=== PATIENT | female | born 1955 | race Caucasian/White ===

== ENCOUNTER → 2024-04-30 | Outpatient (CLI) | payer MEDICARE, SELFPAY ==
--- NOTE | 2024-04-30 08:28 | MRI_ITS ---
STUDY: EXAMINATION - MRV BRAIN WITHOUT CONTRAST REASON FOR EXAM: Female, 68 years old. TIA TECHNIQUE: 3D mkay-nc-tflmse (TOF) imaging was performed in a 1.5 xin MRI scanner. COMPARISON: None. FINDINGS: Normal flow within the superior sagittal sinus. Normal flow within the superficial cortical veins. Normal flow within the paired internal cerebral veins, vein of Aidan and straight sinus. There is preferential flow within the left transverse and sigmoid sinuses, however there is demonstrated flow within the right transverse and sigmoid sinus. Normal flow within the bilateral jugular bulbs. MRI/MRV Head Without Contrast IMPRESSION: Normal unenhanced MRV of the brain. Electronically Signed: Bong Elizondo MD at 23:23 EST ,
--- NOTE | 2024-04-30 08:28 | MRI_ITS ---
STUDY: MRI BRAIN WITH AND WITHOUT CONTRAST REASON FOR EXAM: Female, 68 years old. TIA TECHNIQUE: Standardized multiplanar fat and water weighted pulse sequences were obtained. IV 15cc clariscan was administered for the contrast portion of the examination. COMPARISON: None. FINDINGS: There is mild cerebral atrophy with widening of the extra-axial spaces and ventricular dilatation. There are a limited number of small white matter hyperintensities, distributed throughout the deep white matter tracts of the cerebral hemispheres, consistent with mild chronic white matter ischemic changes. Normal T2* images of the brain without demonstrated susceptibility artifact. There is no demonstrated hemosiderin stain. Normal bilateral basal ganglia. Normal thalami. There is no extra-axial fluid accumulation. Normal flow voids within the major intracranial circulation suggesting patency by spin echo criteria. Normal venous enhancement. There is no enhancing intra-axial or extra-axial abnormality. Normal sella turcica, pituitary gland, infundibular stalk, optic chiasm and hypothalamus. Normal tectal plate and pineal gland. Normal midbrain, pipo and medulla. Normal cerebellum. Normal basal cisterns. Normal bilateral temporal bones. Normal bilateral internal auditory canals. No demonstrated orbital abnormality, within the constraints of a routine brain study. Normal visualized paranasal sinuses. Normal calvarium and skull base. Normal visualized soft tissue structures. Normal visualized upper cervical spine. MRI/Brain W/WO Contrast IMPRESSION: Involutional changes of the brain, as described above. No acute infarct. Electronically Signed: Bong Elizondo MD at 23:21 EST ,
--- NOTE | 2024-04-30 08:28 | MRI_ITS ---
STUDY: MRA OF THE HEAD WITHOUT CONTRAST REASON FOR EXAM: Female, 68 years old. TIA TECHNIQUE: 3-D ndax-dt-vrsnrv (TOF) imaging was performed with MIPs. The study was performed unenhanced. COMPARISON: None. FINDINGS: Normal bilateral petrous carotid arteries. Normal right cavernous carotid artery with a normal supraclinoid bifurcation. Normal left cavernous carotid artery with a normal supraclinoid bifurcation. Normal right A1 segments of the anterior cerebral artery. Normal left A1 segments of the anterior cerebral artery. Normal intact anterior communicating artery (ACOM). Normal bilateral A2 segments of the anterior cerebral arteries. Normal right M1 and M2 segments of the middle cerebral arteries, with a normal M1 bifurcation. Normal left M1 and M2 segments of the middle cerebral arteries, with a normal M1 bifurcation. Normal right posterior communicating artery (PCOM). Normal left posterior communicating artery (PCOM). Normal bilateral vertebral arteries. Normal basilar artery with a normal basilar bifurcation. The visualized bilateral superior cerebellar (SCA) arteries are normal. Normal bilateral P1, P2 and visualized P3 segments of the posterior cerebral arteries. There is no demonstrated aneurysm of the [place]. There is no major vessel occlusion or hemodynamically significant stenosis. There is no demonstrated abnormality of the visualized brain. MRI/MRA Head ONLY without Contrast IMPRESSION: Normal MRA of the head Electronically Signed: Bong Elizondo MD at 23:22 EST ,
[2024-04-30 08:55] LABS: CREATININE FINGERSTICK < 1.0 mg/dL (0.55-1.02); EGFR FINGERSTICK > 60.0000 mL/min (>60)
== END | disposition home or self-care (01) ==
DX: G93.0 Cerebral cysts (principal); Z86.73 Personal history of transient ischemic attack (TIA), and cerebral infarction without residual deficits
CPT/HCPCS: 70544; 70553; A9575

== ENCOUNTER → 2024-11-12 | Outpatient (CLI) | payer MEDICARE, SELFPAY ==
--- NOTE | 2024-11-12 11:21 | RAD_ITS ---
EXAM: XR Right Knee Complete, 4 or More Views CLINICAL INDICATION: SPRAIN OF UNSPECIFIED SITE OF RIGHT KNEE, INITIAL ENCOUNTER TECHNIQUE: Four or more views of the right knee. COMPARISON: No relevant prior studies available. FINDINGS: BONES/JOINTS: Unremarkable. No acute fracture. No dislocation. SOFT TISSUES: Unremarkable. RAD/Knee 4 or More Views IMPRESSION: No acute fracture. Reading Location[facility]
--- NOTE | 2024-11-12 11:21 | RAD_ITS ---
EXAM: XR Right Knee Complete, 4 or More Views CLINICAL INDICATION: SPRAIN OF UNSPECIFIED SITE OF RIGHT KNEE, INITIAL ENCOUNTER TECHNIQUE: Four or more views of the right knee. COMPARISON: No relevant prior studies available. FINDINGS: BONES/JOINTS: Unremarkable. No acute fracture. No dislocation. SOFT TISSUES: Unremarkable. RAD/Knee 4 or More Views IMPRESSION: No acute fracture. Reading Location: [facility]
== END | disposition home or self-care (01) ==
LOC: RAD 11:19
PROVIDERS: Referring Provider Nurse Practitioner Family; Visit Provider Nurse Practitioner Family
DX: S83.91XA Sprain of unspecified site of right knee, initial encounter (principal)
CPT/HCPCS: 73564

== ENCOUNTER → 2024-11-21 | Outpatient (CLI) | payer MEDICARE, SELFPAY ==
--- NOTE | 2024-11-21 15:52 | BI_ITS ---
EXAM: SCRN MAMM (CAD)W/IVETTE BILAT DATE: 11/21/2024 CLINICAL HISTORY: F, Age 69 y/o , SCREENING TECHNIQUE: SCRN MAMM (CAD)W/IVETTE BILAT COMPARISON: Prior exam(s) were compared FINDINGS: TISSUE DENSITY: There are scattered areas of fibroglandular density. Bilateral Breast Mammographic Findings: No suspicious masses, calcifications or other abnormalities are identified. Bilateral breast implants are present. BI/SCRN MAMM (CAD)W/IVETTE BILAT IMPRESSION: No mammographic evidence of malignancy in either breast. OVERALL FINAL ASSESSMENT BI-RADS 2: BENIGN RECOMMENDATION: Routine annual follow-up in 1 Year A letter with findings and recommendations will be mailed to the patient. Reading Location: [id number]
--- NOTE | 2024-11-21 15:52 | BD_ITS ---
PROCEDURE: DEXA BONE DENSITY STUDY 11/21/2024 REASON FOR EXAM: F, age 69 y/o . TECHNIQUE: DEXA BONE DENSITY STUDY COMPARISON: None available FINDINGS: BMD and T-SCORES Lumbar spine: 1.090 g/cm2, T-score 0.5 Levels: L1 through L4 Left femoral neck: 0.705 g/cm2, T-score -1.3 BD/Dexa Bone Density Study IMPRESSION: Patient's bone density reveals osteopenia with an estimated 10 year risk for hi p fracture of 1.6% and for a Major osteoporotic fracture of 15%. This fracture risk estimate was calculated using FRAX version 3.08. Reading Location: [id number]
== END | disposition home or self-care (01) ==
LOC: OPBI 15:49
DX: Z12.31 Encounter for screening mammogram for malignant neoplasm of breast (principal); Z78.0 Asymptomatic menopausal state
CPT/HCPCS: 77063; 77067; 77080

== ENCOUNTER → 2024-11-28 | Outpatient (CLI) | payer MEDICARE, SELFPAY ==
--- NOTE | 2024-11-28 09:50 | US_ITS ---
PROCEDURE: EXT NON VASC LIMITED/SOFT TISS, 11/28/2024 REASON FOR EXAM: LOCALIZED SWELLING L LEG TECHNIQUE: Targeted grayscale and color Doppler evaluation of the areas of palpable abnormality/clinical concern along the LEFT thigh and lower leg was performed. COMPARISON: None FINDINGS: Along the LEFT lateral thigh, there is a subcutaneous isoechoic ill-defined nodular structure measuring 7 x 5 x 7 mm without detected vascularity. An additional similar-appearing structure along the LEFT lateral thigh measures 6 x 10 x 5 mm, with a peripheral blood vessel. Along the anterior aspect of the lower extremity, there is a subcutaneous peripherally calcified and densely shadowing structure measuring 5 x 5 x 3 mm. US/Ext Non Vasc Limited/Soft Tiss IMPRESSION: Palpable abnormalities along the LEFT lateral thigh correspond to subcutaneous nodular lesions up to 10 mm which are compatible with lipomas. Additional 5 mm calcified and shadowing nodular lesion along the anterior aspect of the LEFT lower extremity is nonspecific. Consider sequela of previous trauma or perhaps a calcified thromb osed superficial vein. Recommend clinical follow-up with follow-up imaging as dictated clinically. Reading Location: [id number]
--- NOTE | 2024-11-28 09:50 | US_ITS ---
PROCEDURE: EXT NON VASC LIMITED/SOFT TISS, 11/28/2024 REASON FOR EXAM: LOCALIZED SWELLING R COMPARISON: None TECHNIQUE: Targeted grayscale and color Doppler evaluation of the area of palpable abnormalities/clinical concern along the RIGHT lateral thigh was performed. FINDINGS: No discrete sonographic abnormality is identified in the areas of clinical concern/palpable abnormality. US/Ext Non Vasc Limited/Soft Tiss IMPRESSION: No discrete sonographic abnormality is identified in the areas of clinical conc brandi/palpable abnormality. If concern or abnormal exam findings persist, consider cross-sectional imaging such as CT/MRI. Reading Location: [id number]
--- OUTSIDE RECORDS SUMMARY | 2024-11-28 12:44 | XMS RPT_ITS | CCD ---
Author Organization [facility] CliniSyme Care Team Providers Care Deputy County Attorney Name Role Phone Ori, Yoandy S Unavailable Unavailable Carp, Yoandy S Unavailable Unavailable Carp, Yoandy S Unavailable Unavailable Dillan Humphrey Unavailable Unavailable Dillan Humphrey Primary Care Provider Susannah Brice Primary Care Provider Shelly Mayers (Heel Sorter) Primary Care Provider [phone] Dillan Humphrey DO Primary Care Provider BROOKE TORRES Attending Unavailable BROOKE TORRES Admitting Unavailable DILLAN HUMPHREY Primary Care Unavailable Jade BROYD Attending Unavailable Dillan Humphrey Attending Unavailable Clare Gallardo Attending Unavailable Ann-Marie Rivers Attending Unavailable Pam, Clare Cota Attending Unavailable Dillan Humphrey Attending Unavailable BROOKE TORRES Referring Unavailable BROOKE TORRES Attending Unavailable DILLAN HUMPHREY Primary Care Unavailable Dillan Humphrey DO Primary Care Provider DILLAN HUMPHREY Primary Care Provider Musat BRIDGE ENGINEER-CKatherine Attending Provider [phone] Musat BRIDGE ENGINEER-C Katherine Referring Provider [phone] GLENN PEÑA Referring Unavailable PEÑA, GLENN Primary Care Unavailable GLENN PEÑA Attending Unavailable GLENN PEÑA Attending Unavailable PEÑA, GLENN Referring Unavailable Care Physician, No Primary Primary Care Unava ilable Jonathan Durán Attending Unavailable GLENN PEÑA Primary Care Unavailable Musghada Katherine Attending Unavailable Musat, Katherine Referring Unavailable PEÑA, GLENN Referring Unavailable Care Physician, No Primary Primary Care Unava ilable GLENN PEÑA Attending Unavailable PEÑA, GLENN Referring Unavailable PEÑA, GLENN Primary Care Unavailable GLENN PEÑA Attending Unavailable CLARE GALLARDO Attending Provider CLARE GALLARDO Referring Provider Medications Current Medications Medication Drug Class(es) Dates Sig (Normalized) Sig (Original) acetaminophen 325 mg / oxyCODONE hydrochloride 5 mg oral tablet (1 source) Opioid Agonist Start: 0 End: 0 take 1 tablet by mouth every six hours as needed for pain, then take 1 tablet by mouth as needed for pain oxyCODONE-acetaminoph en (PERCOCET) 5-325 MG per tablet Indications: Rectal mucosa prolapse Take 1 tablet by mouth every 6 hours as needed for Pain for up to 7 days. Intended supply: 7 days. Take lowest dose possible to manage pain 28 tablet 0 12/20/2019 12/27/2019 Active ALPRAZolam 0.25 mg disintegrating oral tablet (1 source) Benzodiazepine Start: 0 ALPRAZolam (NIRAVAM) dissolvable tablet 0.25 mg 24 hr buPROPion hydrochloride 300 mg extended release oral tablet (5 sources) Aminoketone Start: 0 take 1 tablet by mouth once daily buPROPion (WELLBUTRIN XL) 300 MG extended release tablet TK 1 T PO QD 0 10/14/2019 Active calcium chloride 0.0014 meq/ml / potassium chloride 0.004 meq/ml / sodium chloride 0.103 meq/ml / sodium lactate 0.028 meq/ml injectable solution (1 source) Start: 0 lactated ringers infusion dextroamphetamine sulfate 10 mg extended release oral capsule (10 sources) Central Nervous System Stimulant Start: 0 take 2 tablets by mouth once daily dextroamphetamine (DEXEDRINE) 10 MG extended release capsule Indications: at 1300 Take 20 mg by mouth daily. Indications: at 1300 Take 2 tablets qd 0 10/24/2019 Active Start: 10-24-2019 take 2 tablets by mo uth once daily in the morning dextroamphetamine (DEXEDRINE) 15 MG extended release capsule Take 30 mg by mouth every morning. Take 2 tablets qd 0 10/24/2019 Active 2 ml fentaNYL 0.05 mg/ml injection (2 sources) Opioid Agonist Start: 12-20-2019 fentaNYL (SUBL IMAZE) injection 25 mcg Start: 12-20-2019 fentaNYL (SUBL IMAZE) injection 50 mcg 1 ml hydrALAZINE hydrochloride 20 mg/ml injection (1 source) Arteriolar Vasodilator Start: 12-20-2019 hydrALAZINE (APRESOLINE) injection 5 mg 1 ml HYDROmorphone hydrochloride 1 mg/ml cartridge (2 sources) Opioid Agonist Start: 12-20-2019 HYDROmorphone (DILAUDID) injection 0.5 mg Start: 12-20-2019 HYDROmorphone (DILAUDID) injection 0.25 mg 4 ml labetalol hydrochloride 5 mg/ml cartridge (1 source) beta-Adrenergic Kota Start: 12-20-2019 labetalol (NORMODYNE;TRANDATE) injection 5 mg lisinopril 10 mg oral tablet (5 sources) Angiotensin Converting Enzyme Inhibitor Start: 10-14-2019 take 1 tablet by mouth once daily lisinopril (PRINIVIL;ZESTRIL) 10 MG tablet TK 1 T PO ONCE A DAY 0 10/14/2019 Active 1 ml meperidine hydrochloride 25 mg/ml cartridge (1 source) Opioid Agonist Start: 12-20-2019 meperidine (DEMEROL) injection 12.5 mg 3 ml sodium chloride 9 mg/ml injection (2 sources) Start: 12-20-2019 sodium chloride flush 0.9 % injection 10 mL Completed/Discontinued Medications Medication Drug Class(es) Dates Sig (Normalized) Sig (Original) acetaminophen 500 mg oral tablet (1 source) Start: 12-20-2019 End: 12-20-2019 acetaminophen (TYLENOL) tablet 1,000 mg Start: 12-20-2019 End: 12-20-2019 acetaminophen (TYLENOL) tabl et 1,000 mg celecoxib 400 mg oral capsule (1 source) Nonsteroidal Anti-inflammatory Drug Start: 12-20-2019 End: 12-20-2019 celecoxib (CELEBREX) capsule 400 mg Start: 12-20-2019 End: 12-20-2019 celecoxib (CELEBREX) capsule 400 mg famotidine 20 mg oral tablet (1 source) Histamine-2 Receptor Antagonist Start: 12-20-2019 End: 12-20-2019 famotidine (PEPCID) tablet 20 mg Start: 12-20-2019 End: 12-20-2019 famotidine (PEPCID) tablet 2 0 mg gabapentin 300 mg oral capsule (1 source) Anti-epileptic Agent Start: 12-20-2019 End: 12-20-2019 gabapentin (NEURONTIN) capsule 300 mg Start: 12-20-2019 End: 12-20-2019 gabapentin (NEURONTIN) capsu le 300 mg 2 ml ondansetron 2 mg/ml injection (1 source) Serotonin-3 Receptor Antagonist Start: 12-20-2019 End: 12-20-2019 ondansetron (ZOFRAN) injection 4 mg Problems Active Problems Problem Classification Problem Date Documented Date Episodic/Chronic Anal and rectal conditions (1 source) Rectal prolapse; Translations: [Rectal mucosa prolapse] Episodic Conditions associated with dizziness or vertigo (1 source) Dizziness and giddiness; Translations: [Dizziness and giddiness] Onset: 12-29-2023 Episodic Disorders of lipid metabolism (1 source) Hyperlipidemia; Translations: [Hyperlipidemia] 07-30-2015 Chronic Essential hypertension (2 sources) Essential hypertension; Translations: [Essential (primary) hypertension] Onset: 11-28-2023 07-30-2015 Chronic Other and ill-defined cerebrovascular disease (1 source) Cerebrovascular disease, unspecified; Translations: [Cerebrovascular disease, unspecified] Onset: 12-29-2023 Chronic Other hematologic conditions (2 sources) Congenital methemoglobinemia; 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] Onset: 11-25-2022 Episodic Other nervous system disorders (1 source) Aphasia; Translations: [Aphasia] Onset: 11-06-2023 Chronic Other nervous system disorders (1 source) Cerebral cysts; Translations: [Cerebral cysts] Onset: 05-22-2024 Chronic Other screening for suspected conditions (not mental disorders or infectious disease) (1 source) Encounter for screening mammogram for malignant neoplasm of breast; Translations: [Encounter for screening mammogram for malignant neoplasm of breast] Onset: 11-21-2024 Episodic Other skin disorders (1 source) Localized swelling, mass and lump, lower limb, bilateral; Translations: [Localized swelling, mass and lump, lower limb, bilateral] Onset: 11-26-2024 Episodic Residual codes; unclassified (2 sources) Other hypersomnia; Translations: [OTHER HYPERSOMNIA] Onset: 12-14-2020 Chronic Residual codes; unclassified (2 sources) Obstructive sleep apnea (adult) (pediatric); Translations: [Obstructive sleep apnea (adult) (pediatric)] Onset: 06-05-2024 Chronic Residual codes; unclassified (3 sources) Obstructive sleep apnea syndrome; Translations: [Obstructive sleep apnea (adult) (pediatric)] 06-05-2024 Chronic Residual codes; unclassified (2 sources) Hypersomnia; Translations: [Other hypersomnia] 06-06-2024 Chronic Residual codes; unclassified (1 source) Altered mental status, unspecified; Translations: [Altered mental status, unspecified] Onset: 11-06-2023 Episodic Residual codes; unclassified (1 source) Asymptomatic menopausal state; Translations: [Asymptomatic menopausal state] Onset: 11-21-2024 Episodic Residual codes; unclassified (1 source) Taking high risk medication; Translations: [High risk medication use] 07-30-2015 Sprains and strains (1 source) Sprain of unspecified site of right knee, initial encounter; Translations: [Sprain of unspecified site of right knee, initial encounter] Onset: 11-18-2024 Episodic Unclassified (1 source) Unknown / UNK(Unknown) Onset: 05-24-2017 Past or Other Problems Problem Classification Problem Date Documented Da te Episodic/Chronic Lymphadenitis (1 source) Localized enlarged lymph nodes; Translations: [Localized enlarged lymph nodes] Onset: 04-14-2023 Episodic Ovarian cyst (1 source) Unspecified ovarian cyst, right side; Translations: [Unspecified ovarian cyst, right side] Onset: 04-14-2023 Episodic Unclassified (1 source) PRESURGICAL TESTING~ Onset: 05-24-2017 Results Test Name Value Interpretation Reference Range Facility Bone density reportOrdered B y: María Mills on 11-22-2024 Study report Skeletal system DXA [facility] Imaging Services [address] [place] [address] [id number] Dexa Bone Density Study MR#: [id number] Acct: [id number] Name: JENNIFFER DOMINGUEZ Rep #: [id number] : 1955 F 69 From: Chris Heath MD PCP: DILLAN HUMPHREY Status: REG CLI Study:Dexa Bone Density Study Date of Exam: 11/21/24 Exam# [id number] Ordering Dr: Sivan GALLARDO PROCEDURE: DEXA BONE DENSITY STUDY 11/21/2024 REASON FOR EXAM: F, age 69 y/o . TECHNIQUE: DEXA BONE DENSITY STUDY COMPARISON: None available FINDINGS: BMD and T-SCORES Lumbar spine: 1.090 g/cm2, T-score 0.5 Levels: L1 through L4 Left femoral neck: 0.705 g/cm2, T-score -1.3 BD/Dexa Bone Density Study IMPRESSION: Patient's bone density reveals osteopenia with an estimated 10 year risk for hipfracture of 1.6% and for a Major osteoporotic fracture of 15%. This fracture risk estimate was calculated using FRAX version 3.08. Reading Location: [id number] CC: CLARE GALLARDO; DILLAN HUMPHREY ~ Lead Electrician: Signed [facility] Breast imaging reportOrdered By: María Mills on 11-21-[address] [facility] Services [address] [place] [address] SCRN MAMM (CAD)W/IVETTE BILAT MR#: [id number] Acct: [id number] Name: JENNIFFER DOMINGUEZ Rep #: [id number] : 1955 F 69 From: Chris Heath MD PCP: DILLAN HUMPHREY Status: REG CLI Study:SCRN MAMM (CAD)W/IVETTE BILAT Date of Exa m: 11/21/24 Exam# [id number] Ordering Dr: Sivan GALLARDO EXAM: SCRN MAMM (CAD)W/IVETTE BILAT DATE: 11/21/2024 CLINICAL HISTORY: F, Age 69 y/o , SCREENING TECHNIQUE: SCRN MAMM (CAD)W/IVETTE BILAT COMPARISON: Prior exam(s) were compared FINDINGS: TISSUE DENSITY: There are scattered areas of fibroglandular density. Bilateral Breast Mammographic Findings: No suspicious masses, calcifications or other abnormalities are identified. Bilateral breast implants are present. BI/SCRN MAMM (CAD)W/IVETTE BILAT IMPRESSION: No mammographic evidence of malignancy in either breast. OVERALL FINAL ASSESSMENT BI-RADS 2: BENIGN RECOMMENDATION: Routine annual follow-up in 1 Year A letter with findings and recommendations will be mailed to the patient. Reading Location: [facility] CC: CLARE GALLARDO; DILLAN HUMPHREY ~ Lead Electrician: Signed [facility] Dexa Bone Density Studyon Dexa Bone Density Study [facility] Imaging Services [address] [place] [address] Dexa Bone Density Study MR#: [id number] Acct: [id number] Name: JENNIFFER DOMINGUEZ Rep #: [id number] : 1955 F 69 From: María Lopez i, MD PCP: DILLAN HUMPHREY Status: REG CLI Study: Dexa Bone Density Study Date of Exam: 11/21/24 Exam# [id number] Ordering Dr: CLARE GALLARDO PROCEDURE: DEXA BONE DENSITY STUDY 11/21/2024 REASON FOR EXAM: F, age 69 y/o . TECHNIQUE: DEXA BONE DENSITY STUDY COMPARISON: None available FINDINGS: BMD and T-SCORES Lumbar spine: 1.090 g/cm2, T-score 0.5 Levels: L1 through L4 Left femoral neck: 0.705 g/cm2, T-score -1.3 BD/Dexa Bone Density Study IMPRESSION: Patient's bone density reveals osteopenia with an estimated 10 year risk for hip fracture of 1.6% and for a Major osteoporotic fracture of 15%. This fracture risk estimate was calculated using FRAX version 3.08. Reading Location: [facility] CC: CLARE GALLARDO; DILLAN HUMPHREY Lead Electrician: Signed Normal [facility] SCRN MAMM (CAD)W/IVETTE BILATo n 11-21-2024 SCRN MAMM (CAD)W/IVETTE BILAT [facility] Imaging Services [address] [place] [address] SCRN MAMM (CAD)W/IVETTE BILAT MR#: [id number] Acct: [id number] Name: JENNIFFER DOMINGUEZ Rep #: [id number] : 1955 F 69 From: María Lopez i, MD PCP: DILLAN HUMPHREY Status: REG CLI Study: SCRN MAMM (CAD)W/IVETTE BILAT Date of Exam: 10/30 08/23 Exam# [id number] Ordering Dr: CLARE GALLARDO EXAM: SCRN MAMM (CAD)W/IVETTE BILAT DATE: 11/21/2024 CLINICAL HISTORY: F, Age 69 y/o , SCREENING TECHNIQUE: SCRN MAMM (CAD)W/IVETTE BILAT COMPARISON: Prior exam(s) were compared FINDINGS: TISSUE DENSITY: There are scattered areas of fibroglandular density. Bilateral Breast Mammographic Findings: No suspicious masses, calcifications or other abnormalities are identified. Bilateral breast implants are present. BI/SCRN MAMM (CAD)W/IVETTE BILAT IMPRESSION: No mammographic evidence of malignancy in either breast. OVERALL FINAL ASSESSMENT BI-RADS 2: BENIGN RECOMMENDATION: Routine annual follow-up in 1 Year A letter with findings and recommendations will be mailed to the patient. Reading Location: [id number] CC: CLARE GALLARDO; DILLAN HUMPHREY Lead Electrician: Signed Normal [facility] Knee 4 or More Viewson 11-[address] [facility] Services [address] [place] [address] Knee 4 or More Views MR#: [id number] Acct: [id number] Name: JENNIFFER DOMINGUEZ Rep #: [id number] : 1955 F 69 From: Ryan Reddy MD PCP: DILLAN HUMPHREY Status: REG CLI Study: Knee 4 or More Views Date of Exam: 11/12/24 Exam# [id number] Ordering Dr: Katherine Moreno BRIDGE ENGINEER-C EXAM: XR Right Knee Complete, 4 or More Views CLINICAL INDICATION: SPRAIN OF UNSPECIFIED SITE OF RIGHT KNEE, INITIAL ENCOUNTER TECHNIQUE: Four or more views of the right knee. COMPARISON: No relevant prior studies available. FINDINGS: BONES/JOINTS: Unremarkable. No acute fracture. No dislocation. SOFT TISSUES: Unremarkable. RAD/Knee 4 or More Views IMPRESSION: No acute fracture. Reading Location: [facility] CC: CEDRIC Moreno; DILLAN HUMPHREY Lead Electrician: Signed Normal [facility] COMPREHENSIVE METABOLIC PANE Alfredito 11-06-2024 Albumin [Mass/Vol] 4.3 g/dL Normal 3.6-5.1 [facility] Comment on above: Performed By: #### X LPB #### [facility] [address] [place] [phone] Play Reader: Rebekah Monroy M.D. #### 7600, 05558 #### [facility] [place] [address] [place] , [address] [place], [place] [phone] Play Reader: Blaze Gonzalez MD Albumin/Globulin [Mass ratio] 2.3 {ratio} Normal 1.0-2.5 [facility] Comment on above: Performed By: #### X LPB #### [facility] [address] [place], [place] [phone] Play Reader: Rebekah Monroy M.D. #### 7600, 79791 #### [facility] [place] [address] [place] , [address] [place], [place] [phone] Play Reader: Blaze Gonzalez MD ALP [Catalytic activity/Vol] 71 U/L Normal 37-153 [facility] Comment on above: Performed By: #### X LPB #### [facility] [address] [place] [phone] Play Reader: Rebekah Monroy M.D. #### 7600, 61675 #### [facility] of [place] [address] [place] , [address] [place] [phone] Play Reader: Blaze Gonzalez MD ALT [Catalytic activity/Vol] 19 U/L Normal 6-29 [facility] Comment on above: Performed By: #### X LPB #### [facility] [address] [place] [phone] Play Reader: Rebekah Monroy M.D. #### 7600, 09222 #### [facility] [address] , [address] [place] [address] Play Reader: Blaze Gonzalez MD AST [Catalytic activity/Vol] 20 U/L Normal 10-35 [facility] Comment on above: Performed By: #### X LPB #### [facility] [address] [place] [address] Play Reader: Rebekah Monroy M.D. #### 7600, 94035 #### [facility] [address], [address] [place] [address] Play Reader: Blaze Gonzalez MD Bilirubin [Mass/Vol] 0.5 mg/dL Normal 0.2-1.2 [facility] Comment on above: Performed By: #### X LPB #### [facility] [place] [address] Play Reader: Rebekah Monroy M.D. #### 7600, 10546 #### [facility] [address], [address] [place] [address] Play Reader: Blaze Gonzalez MD BUN/CREATININE RATIO SEE NOTE: Normal 6-22 [facility] Comment on above: Result Comment: Not Reported: BUN and Creatinine are within reference range. Performed By: #### X LPB #### [facility] [place] [address] Play Reader: Rebekah Monroy M.D. #### 7600, 34181 #### [facility] [address], [address] [place] [address] Play Reader: Blaze Gonzalez MD Calcium [Mass/Vol] 9.3 mg/dL Normal 8.6-10.4 [facility] Comment on above: Performed By: #### X LPB #### [facility] [place] [address] Play Reader: Rebekah Monroy M.D. #### 7600, [address]309 #### [facility] [address], [address] [place], [place] [phone] Play Reader: Blaze Gonzalez MD Chloride [Moles/Vol] 105 mmol/L Normal 98-110 [facility] Comment on above: Performed By: #### X LPB #### [facility] [address] [place], [place] [phone] Play Reader: Rebekah Monroy M.D. #### 7600, 92292 #### [facility] [address], [address] [place] [address] Play Reader: Blaze Gonzalez MD CO2 [Moles/Vol] 25 mmol/L Normal 20-32 [facility] Comment on above: Performed By: #### X LPB #### [facility]-[address] Play Reader: Rebekah Monroy M.D. #### 7600, [address] #### [facility] [address], [address] [place] [address] Play Reader: Blaze Gonzalez MD Creatinine [Mass/Vol] 0.79 mg/dL Normal 0.50-1.05 [facility] Comment on above: Performed By: #### X LPB #### [facility]-[address] [place] [address] Play Reader: Rebekah Monroy M.D. #### 7600, 31625 #### [facility] [address], [address] [place] [address] Play Reader: Blaze Gonzalez MD GFR/1.73 sq M.predicted among non-blacks MDRD (S/P/Bld) [Vol rate/Area] 81 mL/min/{1.73_m2} Normal > OR = 60 [facility] Comment on above: Performed By: #### X LPB #### [facility]-[address] [place] [phone] Play Reader: Rebekah Monroy M.D. #### 7600, 81721 #### [facility] [address], [address] [place], [place] [phone] Play Reader: Blaze Gonzalez MD Globulin (S) [Mass/Vol] 1.9 g/dL Normal 1.9-3.7 [facility] Comment on above: Performed By: #### X LPB #### [facility] [place] [address] Play Reader: Rebekah Monroy M.D. #### 7600, 45284 #### [facility] [address], [address] [place] [address] Play Reader: Blaze Gonzalez MD Glucose [Mass/Vol] 95 mg/dL Normal 65-99 [facility] Comment on above: Result Comment: Fasting reference interval Performed By: #### X LPB #### [facility] [place] [address] Play Reader: Rebekah Monroy M.D. #### 7600, 61502 #### [facility] [address], [address] [place] [address] Play Reader: Blaze Gonzalez MD Potassium [Moles/Vol] 4.6 mmol/L Normal 3.5-5.3 [facility] Comment on above: Performed By: #### X LPB #### [facility] [place] [address] Play Reader: Rebekah Monroy M.D. #### 7600, 47416 #### [facility] [place] [address] Play Reader: Blaze Gonzalez MD Protein [Mass/Vol] 6.2 g/dL Normal 6.1-8.1 [facility] Comment on above: Performed By: #### X LPB #### [facility] [place] [address] Play Reader: Rebekah Monroy M.D. #### 7600, 25987 #### [facility] [address], [address] [place], [place] [address] Play Reader: Blaze Gonzalez MD Sodium [Moles/Vol] 138 mmol/L Normal 135-146 [facility] Comment on above: Performed By: #### X LPB #### [facility] [address] [place] [phone] Play Reader: Rebekah Monroy M.D. #### 7600, 69600 #### [facility] of [address], [address] [place], [place] [phone] Play Reader: Blaze Gonzalez MD Urea nitrogen [Mass/Vol] 23 mg/dL Normal 7-25 [facility] Comment on above: Performed By: #### X LPB #### [facility] [address] [place] [phone] Play Reader: Rebekah Monroy M.D. #### 7600, 75208 #### [facility] [address], [address] [place] [address] Play Reader: Blaze Gonzalez MD EXTRA LAVENDER-TOP TUBEon COMMENT Normal [facility] Comment on above: Result Comment: An e xtra specimen was received with no test requested. The specimen will be maintained in storage in case additional testing is needed. Please call the client service department for further assistance. Performed By: #### X LPB #### [facility] [address] [place], [place] [phone] Play Reader: Rebekah Monroy M.D. #### 7600, 73029 #### [facility] [address], [address] [place] [address] Play Reader: Blaze Gonzalez MD EXTRA LAVENDER-TOP TUBE Normal [facility] Comment on above: Performed By: #### X LPB #### [facility] [address] [place] [phone] Play Reader: Rebekah Monroy M.D. #### 7600, 44042 #### [facility] [address], [address] [place], [place] [phone] Play Reader: Blaze Gonzalez MD LIPID PANEL, STANDARDon Cholesterol [Mass/Vol] 228 mg/dL High <200 [facility] Comment on above: Order Comment: 0 0 Performed By: #### X LPB #### [facility] [address] [place] [phone] Play Reader: Rebekah Monroy M.D. #### 7600, 24227 #### [facility] [address], [address] [place] [address] Play Reader: Blaze Gonzalez MD Cholesterol in HDL [Mass/Vol] 75 mg/dL Normal > OR = 50 [facility] Comment on above: Order Comment: 0 0 Performed By: #### X LPB #### [facility] [address] [place] [phone] Play Reader: Rebekah Monroy M.D. #### 7600, 87265 #### [facility] [address], [address] [place] [address] Play Reader: Blaze Gonzalez MD Cholesterol in LDL [Mass/Vol] 133 mg/dL High [facility] Comment on above: Order Comment: 0 0 Result Comment: Refe rence range: <100 Desirable range <100 mg/dL for primary prevention; <70 mg/dL for patients with CHD or diabetic patients with > or = 2 CHD risk factors. LDL-C is now calculated using the Samson-Santiago calculation, which is a validated novel method providing better accuracy than the Friedewald equation in the estimation of LDL-C. Samson PULLIAM et al. JEANNIE. 2013;310(19): 3388-3611 (http://education.[facility].140Fire/faq/STB930) Performed By: #### X LPB #### [facility] [address] [place] [address] Play Reader: Rebekah Monroy M.D. #### 7600, 44967 #### [facility] [address], [address] [place], [place] [phone] Play Reader: Blaze Gonzalez MD Cholesterol.total/C holesterol in HDL [Mass ratio] 3.0 {ratio} Normal <5.0 [facility] Comment on above: Order Comment: 0 0 Performed By: #### X LPB #### [facility] [address] [place] [phone] Play Reader: Rebekah Monroy M.D. #### 7600, 29249 #### [facility] [address], [address] [place] [address] Play Reader: Blaze Gonzalez MD NON HDL CHOLESTEROL 153 mg/dL (calc) High <130 [facility] Comment on above: Order Comment: 0 0 Result Comment: For patients with diabetes plus 1 major ASCVD risk factor, treating to a non-HDL-C goal of <100 mg/dL (LDL-C of <70 mg/dL) is considered a therapeutic option. Performed By: #### X LPB #### [facility] [address] Play Reader: Rebekah Monroy M.D. #### 7600, [id number] #### [facility] [address], [address] [place] [address] Play Reader: Blaze Gonzalez MD Triglyceride [Mass/Vol] 102 mg/dL Normal <150 [facility] Comment on above: Order Comment: 0 0 Performed By: #### X LPB #### [facility] [address] Play Reader: Rebekah Monroy M.D. #### 7600, [address]2616 #### [facility] [place] [address] Play Reader: Blaze Gonzalez MD No Panel Informationon 06-06 [facility] Brain W/WO Contraston 2023 Brain W/WO Contrast [facility] Imaging Services [address] [place], [place] [id number] Brain W/WO Contrast MR#: [id number] Acct: [id number] Name: ANGELICAJENNIFFER BACA Rep #: [id number] : 1955 F 68 From: Bong Elizondo MD PCP: Care Physician,No Primary Status: REG CLI Study: Brain W/WO Contrast Date of Exam: 04/30/24 Exam# [id number] Ordering Dr: BROOKE TORRES [id number] STUDY: MRI BRAIN WITH AND WITHOUT CONTRAST REASON FOR EXAM: Female, 68 years old. TIA TECHNIQUE: Standardized multiplanar fat and water weighted pulse sequences were obtained. IV 15cc clariscan was administered for the contrast portion of the examination. COMPARISON: None. FINDINGS: There is mild cerebral atrophy with widening of the extra-axial spaces and ventricular dilatation. There are a limited number of small white matter hyperintensities, distributed throughout the deep white matter tracts of the cerebral hemispheres, consistent with mild chronic white matter ischemic changes. Normal T2* images of the brain without demonstrated susceptibility artifact. There is no demonstrated hemosiderin stain. Normal bilateral basal ganglia. Normal thalami. There is no extra-axial fluid accumulation. Normal flow voids within the major intracranial circulation suggesting patency by spin echo criteria. Normal venous enhancement. There is no enhancing intra-axial or extra-axial abnormality. Normal sella turcica, pituitary gland, infundibular stalk, optic chiasm and hypothalamus. Normal tectal plate and pineal gland. Normal midbrain, pipo and medulla. Normal cerebellum. Normal basal cisterns. Normal bilateral temporal bones. Normal bilateral internal auditory canals. No demonstrated orbital abnormality, within the constraints of a routine brain study. Normal visualized paranasal sinuses. Normal calvarium and skull base. Normal visualized soft tissue structures. Normal visualized upper cervical spine. MRI/Brain W/WO Contrast IMPRESSION: Involutional changes of the brain, as described above. No acute infarct. Electronically Signed: Bong Elizondo MD at 23:21 EST , CC: BROOKE TORRES; No Primary Care Physician Lead Electrician: Signed Normal [facility] CREATININE FINGERSTICKon CREATININE WB < 1.0 Normal 0.55-1.02 [facility] Comment on above: Performed By: #### L 9100.0200 #### [facility] Laboratory [address] [place], [place], [address] EGFR WB > 60.0000 Normal >60 [facility] Comment on above: Performed By: #### L 9100.0200 #### [facility] Laboratory [address] [place], [place], [address] MRA Head ONLY without Contra ston 04-30-2024 MRA Head ONLY without Contrast [facility] Imaging Services [address] [place], [place] [address] MRA Head ONLY without Contrast MR#: [id number] Acct: [id number] Name: JENNIFFER DOMINGUEZ Rep #: [id number] : 1955 F 68 From: Bong Elizondo MD PCP: Care Physician,No Primary Status: REG CLI Study: MRA Head ONLY without Contrast Date of Exam: Exam# [id number] Ordering Dr: BROOKE TORRES [id number] STUDY: MRA OF THE HEAD WITHOUT CONTRAST REASON FOR EXAM: Female, 68 years old. TIA TECHNIQUE: 3-D beqo-kd-hdtauz (TOF) imaging was performed with MIPs. The study was performed unenhanced. COMPARISON: None. FINDINGS: Normal bilateral petrous carotid arteries. Normal right cavernous carotid artery with a normal supraclinoid bifurcation. Normal left cavernous carotid artery with a normal supraclinoid bifurcation. Normal right A1 segments of the anterior cerebral artery. Normal left A1 segments of the anterior cerebral artery. Normal intact anterior communicating artery (ACOM). Normal bilateral A2 segments of the anterior cerebral arteries. Normal right M1 and M2 segments of the middle cerebral arteries, with a normal M1 bifurcation. Normal left M1 and M2 segments of the middle cerebral arteries, with a normal M1 bifurcation. Normal right posterior communicating artery (PCOM). Normal left posterior communicating artery (PCOM). Normal bilateral vertebral arteries. Normal basilar artery with a normal basilar bifurcation. The visualized bilateral superior cerebellar (SCA) arteries are normal. Normal bilateral P1, P2 and visualized P3 segments of the posterior cerebral arteries. There is no demonstrated aneurysm of the [place] of [place]. There is no major vessel occlusion or hemodynamically significant stenosis. There is no demonstrated abnormality of the visualized brain. MRI/MRA Head ONLY without Contrast IMPRESSION: Normal MRA of the head Electronically Signed: Bong Elizondo MD at 23:22 EST , CC: BROOKE TORRES; No Primary Care Physician Lead Electrician: Signed Normal [facility] MRV Head Without Contraston 04-30-[address] [facility] Imaging Services [address] [place] [address] MRV Head Without Contrast MR#: [id number] Acct: [id number] Name: JENNIFFER DOMINGUEZ Rep #: [id number] : 1955 F 68 From: Bong Elizondo MD PCP: Care Physician,No Primary Status: REG CLI Study: MRV Head Without Contrast Date of Exam: Exam# [id number] Ordering Dr: BROOKE TORRES [id number] STUDY: EXAMINATION - MRV BRAIN WITHOUT CONTRAST REASON FOR EXAM: Female, 68 years old. TIA TECHNIQUE: 3D dlkd-pu-msdmog (TOF) imaging was performed in a 1.5 xin MRI scanner. COMPARISON: None. FINDINGS: Normal flow within the superior sagittal sinus. Normal flow within the superficial cortical veins. Normal flow within the paired internal cerebral veins, vein of Aidan and straight sinus. There is preferential flow within the left transverse and sigmoid sinuses, however there is demonstrated flow within the right transverse and sigmoid sinus. Normal flow within the bilateral jugular bulbs. MRI/MRV Head Without Contrast IMPRESSION: Normal unenhanced MRV of the brain. Electronically Signed: Bong Elizondo MD at 23:23 EST , CC: BROOKE TORRES; No Primary Care Physician Lead Electrician: Signed Normal [facility] 2D M MODE ECHO [place] 2D M MODE ECHO COMPLETE JENNIFFER DOMINGUEZ S Female [id number] Ordering physician: Dillan Humphrey LOC:ECHO [id number] Attending physician: Dillan Humphrey 1955 68 DOS: 12/29/23 Acc#: [id number] Exam/Proc: 2D M MODE ECHO COMPLETE Dept: ECHOCARDIOGRAM JENNIFFER DOMINGUEZ Exam Date: 12/29/2023 13:35 Ordering Physician: Dillan Humphrey : 1955 Age: 68 Gender: F Referring Physician: Dillan Humphrey Ht (cm): 163 Wt (kg): 79 Technologist: Preston Feng RDMS, RDCS Exam #: [id number] Indications: Dizziness and giddiness BP: / HR: BSA: 1.92 Rhythm: Contrast: Technical Quality: MEASUREMENTS (Male / Female) Normal Values 2D ECHO LV Diastolic Diameter PLAX 3.4 cm 4.2 - 5.9 / 3.9 - 5.3 cm IVS Diastolic Thickness 1.3 cm 0.6 - 1.0 / 0.6 - 0.9 cm LVPW Diastolic Thickness 1.1 cm 0.6 - 1.0 / 0.6 - 0.9 cm LV Relative Wall Thickness 0.72 LVOT Diameter 2.1 cm LV Diastolic Volume MOD BP 52.9 ml 67 - 155 / 56 - 104 ml LV Systolic Volume MOD BP 19 ml 22 - 58 / 19 - 49 ml LV Ejection Fraction MOD BP 0.64 % >= 55 % LV Stroke Volume MOD BP 33.9 ml LV Diastolic Volume MOD 4C 64.5 ml LV Systolic Volume MOD 4C 23.7 ml LV Ejection Fraction MOD 4C 0.63 % LV Stroke Volume MOD 4C 40.9 ml LV Diastolic Volume MOD 2C 43.3 ml LV Systolic Volume MOD 2C 15.4 ml LV Ejection Fraction MOD 2C 0.64 % LV Stroke Volume MOD 2C 27.8 ml M-MODE Body Surface Area 1.9 m? DOPPLER AV Peak Velocity 121 cm/s AV Peak Gradient 5.8 mmHg AV Mean Velocity 87.3 cm/s AV Mean Gradient 3.4 mmHg AV Velocity Time Integral 26.4 cm LVOT Peak Velocity 90.4 cm/s LVOT Peak Gradient 3.3 mmHg LVOT Mean Velocity 60.2 cm/s LVOT Mean Gradient 1.7 mmHg LVOT Velocity Time Integral 19.1 cm LVOT Stroke Volume 64.1 ml AV Area Cont Eq vti 2.4 cm? AV Area Cont Eq pk 2.5 cm? Mitral E Point Velocity 71.8 cm/s Mitral A Point Velocity 85.2 cm/s Mitral E to A Ratio 0.84 MV Deceleration [place] 280 cm/s? MV Deceleration Time 256 ms TR Peak Velocity 283 cm/s TR Peak Gradient 32 mmHg Right Atrial Pressure 3 mmHg Pulmonary Artery Systolic Pressu 35 mmHg Right Ventricular Systolic Press 35 mmHg PV Peak Velocity 65.5 cm/s PV Peak Gradient 1.7 mmHg PV Mean Velocity 45.1 cm/s PV Mean Gradient 0.95 mmHg FINDINGS Left Ventricle Normal left ventricular size, wall thickness, systolic function with no obvious regional wall motion abnormalities. Normal left ventricular diastolic filling pattern for age. The ejection fraction is visually estimated at 60 %. Right Ventricle The right ventricle is normal in size and function. Right Atrium The right atrium is normal in size. Left Atrium The left atrium is normal in size. Mitral Valve Structurally normal mitral valve without significant stenosis or prolapse. There is no mitral regurgitation. Aortic Valve Structurally normal aortic valve without significant sclerosis or stenosis. There is no aortic regurgitation. Tricuspid Valve Structurally normal tricuspid valve without significant stenosis or regurgitation. There is no tricuspid regurgitation. Pulmonary artery systolic pressure is normal. Pulmonic Valve Structurally normal pulmonic valve without significant stenosis. There is no pulmonic regurgitation. Pericardium Normal pericardium without effusion. Aorta Normal aortic root dimension. CONCLUSIONS Normal 2D echo Doppler [place] Control: Do not remove! Christ Almanza MD (Electronically Signed) Final Date: 02 January 2024 10:29 PLEASE SEE PROSOLV FOR REPORT HISTORY REPORT SIGNATURE ON FILE Electronically Signed Date/Time: 01/02/24 1029 Dictated Date/time: 12/29/23 1335 CC: Normal [facility] CAROTID ARTERY BILATERALon 0 11-28-2023 CAROTID ARTERY BILATERAL JENNIFFER DOMINGUEZ Female [id number] Ordering physician: Dillan Humphrey LOC:ULTR [id number] Attending physician: Dillan Humphrey 1955 68 DOS: 11/28/23 Acc#: [id number] Exam/Proc: CAROTID ARTERY BILATERAL Dept: ULTRASOUND EXAMINATION: Carotid duplex examination using ackerman scale, color flow and spectral Doppler, TECHNIQUE: Grayscale, color Doppler and spectral images of the carotid and vertebral arteries in the neck. This report is based on interpretation of permanently recorded ultrasound images. COMPARISON: None HISTORY: ORDERING SYSTEM PROVIDED HISTORY: TECHNOLOGIST PROVIDED HISTORY: Reason for Exam: I67.9 R42, hypertension, increased cholesterol, dizziness FINDINGS: There is intimal thickening, small amount of mostly hypoechoic atherosclerotic plaque bilaterally. RIGHT SIDE: Maximum morphologic ICA diameter stenosis is less than 50 %. Maximum CCA PSV: 76 cm/s Maximum ICA PSV: 66 cm/s ICA/CCA ratio: 0.7 ECA PSV: 136 cm/s Vertebral artery: Antegrade , low resistance Subclavian artery: Patent, antegrade LEFT SIDE: Maximum morphologic ICA diameter stenosis is less than 50 %. Maximum CCA PSV: 75 cm/s Maximum ICA PSV: 70 cm/s ICA/CCA ratio: 0.9 ECA PSV: 98 cm/s Vertebral artery: Antegrade , low resistance Subclavian artery: Patent, antegrade IMPRESSION: Mild atherosclerotic disease of the carotid arteries. There is no ICA stenosis of greater than 50% on either side by velocity criteria. Patent vertebral arteries. Electronically signed By Cam Larsen MD 11/28/2023 2:07:43 PM EST Workstation ID : [id number] REPORT SIGNATURE ON FILE Electronically Signed Date/Time: 11/28/231406 Dictated Date/time: 11/28/231405 CC: Normal [facility] MRI BRAIN W/O CONTRASTon MRI BRAIN W/O CONTRAST JENNIFFER DOMINGUEZ Female [id number] Ordering physician: Clare Gallardo LOC:MRI [id number] Attending physician: Clare Gallardo 1955 7 7 DOS: 11/06/23 Acc#: [id number] Exam/Proc: MRI BRAIN W/O CONTRAST Dept: MAGNETIC [facility] HISTORY: Dizziness COMPARISON: No TECHNIQUE: 1. Sagittal T1-weighted images. 2. Axial T2-weighted and T2*-weighted images. 3. Axial FLAIR images. 4. Axial diffusion-weighted images with ADC map. FINDINGS: The ventricles and sulci are normal to mildly enlarged. There is a small arachnoid cyst in the anterior left middle cranial fossa, about 6 mm in thickness. There are mild punctate and nodular T2 hyperintensities in the cerebral white matter; ackerman-white matter differentiation is maintained. There is no abnormal restriction of diffusion. The orbital contents are normal in appearance. The paranasal sinuses are clear. IMPRESSION: Small left arachnoid cyst. Mild small vessel ischemic changes. Electronically signed By Yovani Mead MD 11/06/2023 9:23:36 AM EST Workstation ID : [id number] REPORT SIGNATURE ON FILE Electronically Signed Date/Time: 11/06/23922 Dictated Date/time: 11/06/23920 CC: Normal [facility] SOFT TISSUE EXTREMITY LIMITE Don 04-17-2023 SOFT TISSUE EXTREMITY LIMITED JENNIFFER DOMINGUEZ Female [id number] Ordering physician: Ann-Marie Rivers LOC:[facility] [id number] Attending physician: Ann-Marie Rivers 1955 67 DOS: 04/14/23 Acc#: [id number] Exam/Proc: SOFT TISSUE EXTREMITY LIMITED Dept: ULTRASOUND ADDENDUM Addendum# 1 ADDENDUM: Comparison: None available FINDINGS: Focused ultrasound images were obtained of the left axilla. Multiple lymph nodes are identified the largest measuring 3.3 x 1.7 x 0.8 cm with a cortex measuring 0.2 cm in thickness. No suspicious masses or fluid collections are identified. IMPRESSION: Reactive lymph nodes within the left axilla. Annual mammograms are recommended for this patient. Electronically signed By Dillan Son MD 04/18/2023 5:02:48 PM EST Workstation ID : [id number] Original Report EXAMINATION: TRANSVAGINAL PELVIC ULTRASOUND; LIMITED NONVASCULAR ULTRASOUND 04/14/2023 TECHNIQUE: Transvaginal pelvic ultrasound was performed. COMPARISON: Ultrasound, December 09, 2021 HISTORY: ORDERING SYSTEM PROVIDED HISTORY: TECHNOLOGIST PROVIDED HISTORY: Reason for Exam: RIGHT OVARIAN CYST FINDINGS: Measurements: Uterus: 6.0 x 3.9 x 2.4 cm Endometrial stripe: 0.2 cm Right Ovary:3.3 x 2.6 x 3.3 cm Left Ovary: 1.0 x 1.4 x 1.3 cm Ultrasound Findings: Uterus: Uterus demonstrates normal myometrial echotexture. Endometrial stripe: Endometrial stripe is within normal limits. Right Ovary: 3.0 cm simple right ovarian cysts which does not require further follow-up. Left Ovary: Left ovary is within normal limits. Free Fluid: No evidence of free fluid. IMPRESSION: Negative pelvic ultrasound. _ Dictated by: Dillan Son MD 04/18/231701 Dictated Date/time: 04/17/232012 CC: END ADDENDUM EXAMINATION: TRANSVAGINAL PELVIC ULTRASOUND; LIMITED NONVASCULAR ULTRASOUND 04/14/2023 TECHNIQUE: Transvaginal pelvic ultrasound was performed. COMPARISON: Ultrasound, December 09, 2021 HISTORY: ORDERING SYSTEM PROVIDED HISTORY: TECHNOLOGIST PROVIDED HISTORY: Reason for Exam: RIGHT OVARIAN CYST FINDINGS: Measurements: Uterus: 6.0 x 3.9 x 2.4 cm Endometrial stripe: 0.2 cm Right Ovary:3.3 x 2.6 x 3.3 cm Left Ovary: 1.0 x 1.4 x 1.3 cm Ultrasound Findings: Uterus: Uterus demonstrates normal myometrial echotexture. Endometrial stripe: Endometrial stripe is within normal limits. Right Ovary: 3.0 cm simple right ovarian cysts which does not require further follow-up. Left Ovary: Left ovary is within normal limits. Free Fluid: No evidence of free fluid. IMPRESSION: Negative pelvic ultrasound. Electronically signed By Dillan Son MD 04/17/2023 8:15:41 PM EST Workstation ID : [id number] REPORT SIGNATURE ON FILE Electronically Signed Date/Time: 04/17/232014 Dictated Date/time: 04/17/232012 CC: [facility] TRANSVAGINAL PELVISon 2022 TRANSVAGINAL PELVIS JENNIFFER DOMINGUEZ [id number] Ordering physician: Clare Gallardo LOC:ULTR [id number] Attending physician: Clare Gallardo 1955 7 6 DOS: 04/14/23 Acc#: [id number] Exam/Proc: TRANSVAGINAL PELVIS Dept: ULTRASOUND ADDENDUM Addendum# 1 ADDENDUM: Comparison: None available FINDINGS: Focused ultrasound images were obtained of the left axilla. Multiple lymph nodes are identified the largest measuring 3.3 x 1.7 x 0.8 cm with a cortex measuring 0.2 cm in thickness. No suspicious masses or fluid collections are identified. IMPRESSION: Reactive lymph nodes within the left axilla. Annual mammograms are recommended for this patient. Electronically signed By Dillan Son MD 04/18/2023 5:02:48 PM EST Workstation ID : [id number] Original Report EXAMINATION: TRANSVAGINAL PELVIC ULTRASOUND; LIMITED NONVASCULAR ULTRASOUND 04/14/2023 TECHNIQUE: Transvaginal pelvic ultrasound was performed. COMPARISON: Ultrasound, December 09, 2021 HISTORY: ORDERING SYSTEM PROVIDED HISTORY: TECHNOLOGIST PROVIDED HISTORY: Reason for Exam: RIGHT OVARIAN CYST FINDINGS: Measurements: Uterus: 6.0 x 3.9 x 2.4 cm Endometrial stripe: 0.2 cm Right Ovary:3.3 x 2.6 x 3.3 cm Left Ovary: 1.0 x 1.4 x 1.3 cm Ultrasound Findings: Uterus: Uterus demonstrates normal myometrial echotexture. Endometrial stripe: Endometrial stripe is within normal limits. Right Ovary: 3.0 cm simple right ovarian cysts which does not require further follow-up. Left Ovary: Left ovary is within normal limits. Free Fluid: No evidence of free fluid. IMPRESSION: Negative pelvic ultrasound. _ Dictated by: Dillan Son MD 04/18/231701 Dictated Date/time: 04/17/232012 CC: END ADDENDUM EXAMINATION: TRANSVAGINAL PELVIC ULTRASOUND; LIMITED NONVASCULAR ULTRASOUND 04/14/2023 TECHNIQUE: Transvaginal pelvic ultrasound was performed. COMPARISON: Ultrasound, December 09, 2021 HISTORY: ORDERING SYSTEM PROVIDED HISTORY: TECHNOLOGIST PROVIDED HISTORY: Reason for Exam: RIGHT OVARIAN CYST FINDINGS: Measurements: Uterus: 6.0 x 3.9 x 2.4 cm Endometrial stripe: 0.2 cm Right Ovary:3.3 x 2.6 x 3.3 cm Left Ovary: 1.0 x 1.4 x 1.3 cm Ultrasound Findings: Uterus: Uterus demonstrates normal myometrial echotexture. Endometrial stripe: Endometrial stripe is within normal limits. Right Ovary: 3.0 cm simple right ovarian cysts which does not require further follow-up. Left Ovary: Left ovary is within normal limits. Free Fluid: No evidence of free fluid. IMPRESSION: Negative pelvic ultrasound. Electronically signed By Dillan Son MD 04/17/2023 8:15:41 PM EST Workstation ID : [id number] REPORT SIGNATURE ON FILE Electronically Signed Date/Time: 04/17/232014 Dictated Date/time: 04/17/232012 CC: [facility] Final Surgical Pathology Rep [facility] 11-29-2022 Final Surgical Pathology Report . Pathology Reports Accession: Collected Date/Time: Received Date/Time: Pathologist: [id number] 11/25/2022 15:30 EDT 11/28/2022 08:54 EDT NICANOR LIPSCOMB MD Final Surgical Pathology Report DIAGNOSIS: ORAL MUCOSA, LEFT INNER MIDDLE CHEEK, BIOPSY: - FRAGMENTS OF HYPERPLASTIC SQUAMOUS MUCOSA, WITH MILD SUBEPITHELIAL FIBROSIS Comment: There is marked crush artifact distorting tissue details. There is no evidence of any dysplasia or malignancy. CLINICAL INFORMATION: BENIGN LESION SPECIMEN: A LEFT INNER MIDDLE CHEEK BX - INSIDE MOUTH GROSS DESCRIPTION: A. Received in formalin, labeled with the patients name, Case # [id number], and left inner middle cheek inside mouth are 2 kang-ackerman tissue fragments measuring 0.3 and 0.5 cm in greatest dimension. TS -1 Dictated by RUBIN HENDRICKS MICROSCOPIC DESCRIPTION: The microscopic examination is performed, except in the case of Gross Only. Electronically Signed by Pathology Report verified by [facility] NICANOR LIPSCOMB Sign out Date: 11/29/2022 11:52 Performing Lab: [facility], [address] [place] [address] Pathology Dept Disclaimer If ancillary studies were utilized, the following Laboratory Developed Test (LDT) disclaimer will apply: Under CLIA requirements, [facility] is qualified to perform high complexity testing. For all ancillary stains, positive and negative controls stain appropriately. Performance characteristics of immunohistochemical and chromogenic in-situ hybridization tests have been determined by [facility]. These tests are used for clinical purposes, They should not be regarded as investigational or for research. [facility] ([place]) Lab - Miscellaneouson 2020 Performing Lab [facility] Comment on above: Order Comment: Misc: Amphetamines Performed By: #### M ISC #### [facility] [address] [place] [address] Ref Range Positive Invalid Interpretation [facility] Comment on above: Order Comment: Misc: Amphetamines Performed By: #### M ISC #### [facility] [address] [place] [address] Result 76 ng/mL [facility] Comment on above: Order Comment: Misc: Amphetamines Performed By: #### M ISC #### [facility] [address] [place] [address] Result cont. THE COMPLETE REPORT WILL BE SENT FOR YOUR RECORDS [facility] Comment on above: Order Comment: Misc: Amphetamines Performed By: #### M ISC #### [facility] [address] [place] [address] Test Name AMPHETAMINES QUANT [facility] Comment on above: Order Comment: Misc: Amphetamines Performed By: #### M ISC #### [facility] [address] [place] [address] IVETTE DIGITAL DIAGNOSTIC BILATERALOrdered By: Unknown Result on 11-10-2020 Patient Name: JENNIFFER DOMINGUEZ Mammography ACCESSION EXAM DATE/TIME PROCEDURE ORDERING PROVIDER [id number] 11/10/2020 08:23 EDT MG Breast Tomosynthesis MILIND JENKINS BI CPT code 40990 [id number] Reason For Exam (MG Breast Tomosynthesis BI) breast pain Report REASON FOR EXAM: clinical finding. INDICATED PROBLEM: Indicated problem(s): right breast skin changes to breast. PROCEDURE: MG BREAST TOMOSYNTHESIS BL: NOVEMBER 10, 2020 - 2D/3D Procedure 3D views: Bilateral CCID and MLID view(s) were taken. 2D views: Bilateral MLO, CC, CCID, and MLID view(s) were taken. TISSUE DENSITY: BIRADS A - The breast tissue is almost entirely fat. . FINDINGS: Patient recently noticed skin discoloration around her right breast. There are bilateral retropectoral silicone implants in place. There are no suspicious masses, calcifications, or areas of distortion noted. The patient went on for ultrasound evaluation as well. Sonographic images were obtained of the right breast directly over the area of discoloration, the lower outer quadrant of the right breast. No abnormality is identified. IMPRESSION: No imaging abnormality to explain the patient's skin discoloration. No mammographic evidence of malignancy bilaterally. Annual screening is recommended. Markings on images: BB's = Nipples; skin lesions Open lime = Palpable Line = Scar US BREAST LIMITED RIGHT: NOVEMBER 10, 2020 - 2D digital mammography and tomosynthesis imaging were performed and reviewed with CAD. ASSESSMENT: Category 1 Negative (Overall) RECOMMENDATION: Routine screening mammogram of both breasts in 1 year. Mammography Report . Report Dictated on --- Final --- Signed Date and Time: 11/10/2020 9:27 am Signed by: MD DWAYNE, SAMI HOYT Work Phone: Jt, Ronny [facility] 11/10/2020 9:43 AM EDT Patient Name: JENNIFFER DOMINGUEZ Mammography ACCESSION EXAM DATE/TIME PROCEDURE ORDERING PROVIDER [id number] 11/10/2020 08:23 EDT MG Breast Tomosynthesis MILIND JENKINS BI CPT code 88055 42677 Reason For Exam (MG Breast Tomosynthesis BI) breast pain Report REASON FOR EXAM: clinical finding. INDICATED PROBLEM: Indicated problem(s): right breast skin changes to breast. PROCEDURE: MG BREAST TOMOSYNTHESIS BL: NOVEMBER 10, 2020 - 2D/3D Procedure 3D views: Bilateral CCID and MLID view(s) were taken. 2D views: Bilateral MLO, CC, CCID, and MLID view(s) were taken. TISSUE DENSITY: BIRADS A - The breast tissue is almost entirely fat. . FINDINGS: Patient recently noticed skin discoloration around her right breast. There are bilateral retropectoral silicone implants in place. There are no suspicious masses, calcifications, or areas of distortion noted. The patient went on for ultrasound evaluation as well. Sonographic images were obtained of the right breast directly over the area of discoloration, the lower outer quadrant of the right breast. No abnormality is identified. IMPRESSION: No imaging abnormality to explain the patient's skin discoloration. No mammographic evidence of malignancy bilaterally. Annual screening is recommended. Markings on images: BB's = Nipples; skin lesions Open lime = Palpable Line = Scar US BREAST LIMITED RIGHT: NOVEMBER 10, 2020 - 2D digital mammography and tomosynthesis imaging were performed and reviewed with CAD. ASSESSMENT: Category 1 Negative (Overall) RECOMMENDATION: Routine screening mammogram of both breasts in 1 year. Mammography Report . Report Dictated on --- Final --- Signed Date and Time: 11/10/2020 9:27 am Signed by: MD DWAYNE, SAMI HOYT Work Phone: [facility] Work Phone: MG Breast Tomosynthesis Diag suzi BIon 11-10-2020 MG Breast Tomosynthesis Diagnostic BI Patient Name: JENNIFFER DOMINGUEZ Mammography ACCESSION EXAM DATE/TIME PROCEDURE ORDERING PROVIDER [id number] 11/10/2020 08:23 EDT MG Breast Tomosynthesis MILIND JENKINS BI CPT code 07316 33111 Reason For Exam (MG Breast Tomosynthesis BI) breast pain Report REASON FOR EXAM: clinical finding. INDICATED PROBLEM: Indicated problem(s): right breast skin changes to breast. PROCEDURE: MG BREAST TOMOSYNTHESIS BL: NOVEMBER 10, 2020 - 2D/3D Procedure 3D views: Bilateral CCID and MLID view(s) were taken. 2D views: Bilateral MLO, CC, CCID, and MLID view(s) were taken. TISSUE DENSITY: BIRADS A - The breast tissue is almost entirely fat. . FINDINGS: Patient recently noticed skin discoloration around her right breast. There are bilateral retropectoral silicone implants in place. There are no suspicious masses, calcifications, or areas of distortion noted. The patient went on for ultrasound evaluation as well. Sonographic images were obtained of the right breast directly over the area of discoloration, the lower outer quadrant of the right breast. No abnormality is identified. IMPRESSION: No imaging abnormality to explain the patient's skin discoloration. No mammographic evidence of malignancy bilaterally. Annual screening is recommended. Markings on images: BB's = Nipples; skin lesions Open lime = Palpable Line = Scar US BREAST LIMITED RIGHT: NOVEMBER 10, 2020 - 2D digital mammography and tomosynthesis imaging were performed and reviewed with CAD. ASSESSMENT: Category 1 Negative (Overall) RECOMMENDATION: Routine screening mammogram of both breasts in 1 year. Mammography Report . Report Dictated on Final Signed Date and Time: 11/10/2020 9:27 am Signed by: MD RICE TOM A [facility] US BREAST LIMITED RIGHTOrder ed By: Milind Jenkins on 11-10-2020 Patient Name: JENNIFFER DOMINGUEZ Ultrasound ACCESSION EXAM DATE/TIME PROCEDURE ORDERING PROVIDER [id number] 11/10/2020 08:55 EDT US Breast Limited Right UNASSIGNED, UNASSIGNED CPT code 34211 Reason For Exam (US Breast Limited Right) Rt breast discoloration Report REASON FOR EXAM: clinical finding. INDICATED PROBLEM: Indicated problem(s): right breast skin changes to breast. PROCEDURE: MG BREAST TOMOSYNTHESIS BL: NOVEMBER 10, 2020 - 2D/3D Procedure 3D views: Bilateral CCID and MLID view(s) were taken. 2D views: Bilateral MLO, CC, CCID, and MLID view(s) were taken. TISSUE DENSITY: BIRADS A - The breast tissue is almost entirely fat. . FINDINGS: Patient recently noticed skin discoloration around her right breast. There are bilateral retropectoral silicone implants in place. There are no suspicious masses, calcifications, or areas of distortion noted. The patient went on for ultrasound evaluation as well. Sonographic images were obtained of the right breast directly over the area of discoloration, the lower outer quadrant of the right breast. No abnormality is identified. IMPRESSION: No imaging abnormality to explain the patient's skin discoloration. No mammographic evidence of malignancy bilaterally. Annual screening is recommended. Markings on images: BB's = Nipples; skin lesions Open lime = Palpable Line = Scar US BREAST LIMITED RIGHT: NOVEMBER 10, 2020 - 2D digital mammography and tomosynthesis imaging were performed and reviewed with CAD. ASSESSMENT: Category 1 Negative (Overall) RECOMMENDATION: Routine screening mammogram of both breasts in 1 year. . Ultrasound Report Report Dictated on --- Final --- Signed Date and Time: 11/10/2020 9:27 am Signed by: MD DWAYNE, SAMI HOYT Work Phone: [facility] Incoming Radiology Results From [facility] - 11/10/2020 9:43 AM EDT Patient Name: JENNIFFER DOMINGUEZ Ultrasound ACCESSION EXAM DATE/TIME PROCEDURE ORDERING PROVIDER [id number] 11/10/2020 08:55 EDT US Breast Limited Right UNASSIGNED, UNASSIGNED CPT code 70774 Reason For Exam (US Breast Limited Right) Rt breast discoloration Report REASON FOR EXAM: clinical finding. INDICATED PROBLEM: Indicated problem(s): right breast skin changes to breast. PROCEDURE: MG BREAST TOMOSYNTHESIS BL: NOVEMBER 10, 2020 - 2D/3D Procedure 3D views: Bilateral CCID and MLID view(s) were taken. 2D views: Bilateral MLO, CC, CCID, and MLID view(s) were taken. TISSUE DENSITY: BIRADS A - The breast tissue is almost entirely fat. . FINDINGS: Patient recently noticed skin discoloration around her right breast. There are bilateral retropectoral silicone implants in place. There are no suspicious masses, calcifications, or areas of distortion noted. The patient went on for ultrasound evaluation as well. Sonographic images were obtained of the right breast directly over the area of discoloration, the lower outer quadrant of the right breast. No abnormality is identified. IMPRESSION: No imaging abnormality to explain the patient's skin discoloration. No mammographic evidence of malignancy bilaterally. Annual screening is recommended. Markings on images: BB's = Nipples; skin lesions Open lime = Palpable Line = Scar US BREAST LIMITED RIGHT: NOVEMBER 10, 2020 - 2D digital mammography and tomosynthesis imaging were performed and reviewed with CAD. ASSESSMENT: Category 1 Negative (Overall) RECOMMENDATION: Routine screening mammogram of both breasts in 1 year. . Ultrasound Report Report Dictated on --- Final --- Signed Date and Time: 11/10/2020 9:27 am Signed by: MD DWAYNE, SAMI FELIPEA Work Phone: [facility] Work Phone: US Breast Limited Righton US Breast Limited Right Patient Name: JENNIFFER DOMINGUEZ Ultrasound ACCESSION EXAM DATE/TIME PROCEDURE ORDERING PROVIDER [id number] 11/10/2020 08:55 EDT US Breast Limited Right UNASSIGNED, UNASSIGNED CPT code 50851 Reason For Exam (US Breast Limited Right) Rt breast discoloration Report REASON FOR EXAM: clinical finding. INDICATED PROBLEM: Indicated problem(s): right breast skin changes to breast. PROCEDURE: MG BREAST TOMOSYNTHESIS BL: NOVEMBER 10, 2020 - 2D/3D Procedure 3D views: Bilateral CCID and MLID view(s) were taken. 2D views: Bilateral MLO, CC, CCID, and MLID view(s) were taken. TISSUE DENSITY: BIRADS A - The breast tissue is almost entirely fat. . FINDINGS: Patient recently noticed skin discoloration around her right breast. There are bilateral retropectoral silicone implants in place. There are no suspicious masses, calcifications, or areas of distortion noted. The patient went on for ultrasound evaluation as well. Sonographic images were obtained of the right breast directly over the area of discoloration, the lower outer quadrant of the right breast. No abnormality is identified. IMPRESSION: No imaging abnormality to explain the patient's skin discoloration. No mammographic evidence of malignancy bilaterally. Annual screening is recommended. Markings on images: BB's = Nipples; skin lesions Open lime = Palpable Line = Scar US BREAST LIMITED RIGHT: NOVEMBER 10, 2020 - 2D digital mammography and tomosynthesis imaging were performed and reviewed with CAD. ASSESSMENT: Category 1 Negative (Overall) RECOMMENDATION: Routine screening mammogram of both breasts in 1 year. . Ultrasound Report Report Dictated on Final Signed Date and Time: 11/10/2020 9:27 am Signed by: MD RICE TOM A [facility] CR Hip w/ Pelvis 2 or 3 View s 03-06-2020 CR Hip w/ Pelvis 2 or 3 Views Right Patient Name: JENNIFFER DOMINGUEZ Diagnostic Radiology Exam Date/Time 03/06/2020 11:30:00 EST Exam CR Hip w/ Pelvis 2 or 3 Views Right n Ordering Physician DO HUMPHREY DAVID MATTHEW Accession Number [id number] CPT4 Codes 78670 () Reason For Exam right hip pain Report RIGHT HIP CLINICAL INDICATION: Right hip pain A single AP view of the pelvis followed by AP and lateral views of the right hip were obtained. COMPARISON: None FINDINGS: No fracture or dislocation of the pelvis or right hip is identified. The right hip joint space is relatively well-preserved. The sacroiliac joints appear grossly unremarkable. No lytic or blastic bony lesions are seen. IMPRESSION: No fracture or dislocation of the pelvis or right hip is seen. Report Dictated on Final Dictated: 03/06/2020 4:18 pm Dictating Physician: MD JANG JONATHAN R Signed Date and Time: 03/06/2020 4:22 pm Signed by: MD JANG JONATHAN R Transcribed Date and Time: 03/06/2020 4:18 Normal [facility] XR HIP RIGHT (2-3 VIEWS)on 05-06-2019 Patient Name: JENNIFFER DOMINGUEZ ---Diagnostic Radiology--- Exam Date/Time 03/06/2020 11:30:00 EST Exam CR Hip w/ Pelvis 2 or 3 Views Right n Ordering Physician DO HUMPHREY DAVID MATTHEW Accession Number [id number] CPT4 Codes 53019 () Reason For Exam right hip pain Report RIGHT HIP CLINICAL INDICATION: Right hip pain A single AP view of the pelvis followed by AP and lateral views of the right hip were obtained. COMPARISON: None FINDINGS: No fracture or dislocation of the pelvis or right hip is identified. The right hip joint space is relatively well-preserved. The sacroiliac joints appear grossly unremarkable. No lytic or blastic bony lesions are seen. IMPRESSION: No fracture or dislocation of the pelvis or right hip is seen. Report Dictated on --- Final --- Dictated: 03/06/2020 4:18 pm Dictating Physician: MD JANG JONATHAN R Signed Date and Time: 03/06/2020 4:22 pm Signed by: MD JANG JONATHAN R Transcribed Date and Time: 03/06/2020 4:18 [facility]- ID, [facility], [facility] Incoming Radiology Results From [facility] - 03/06/2020 4:23 PM EST Patient Name: JENNIFFER DOMINGUEZ ---Diagnostic Radiology--- Exam Date/Time 03/06/2020 11:30:00 EST Exam CR Hip w/ Pelvis 2 or 3 Views Right n Ordering Physician DO HUMPHREY DAVID MATTHEW Accession Number [id number] CPT4 Codes 68573 () Reason For Exam right hip pain Report RIGHT HIP CLINICAL INDICATION: Right hip pain A single AP view of the pelvis followed by AP and lateral views of the right hip were obtained. COMPARISON: None FINDINGS: No fracture or dislocation of the pelvis or right hip is identified. The right hip joint space is relatively well-preserved. The sacroiliac joints appear grossly unremarkable. No lytic or blastic bony lesions are seen. IMPRESSION: No fracture or dislocation of the pelvis or right hip is seen. Report Dictated on --- Final --- Dictated: 03/06/2020 4:18 pm Dictating Physician: MD JANG JONATHAN R Signed Date and Time: 03/06/2020 4:22 pm Signed by: MD JANG JONATHAN R Transcribed Date and Time: 03/06/2020 4:18 [place], [place] Op Noteon 12-20-2019 Op Note PATIENT: CATHERINE DOMINGUEZ ADMISSION DATE: 12/20/2019 SURGERY DATE: 12/20/2019 DATE OF : 1955 AGE: 64 ADMITTING PHYSICIAN: Tammie Cheng MD ATTENDING PHYSICIAN: Tammie Cheng MD DICTATING PHYSICIAN: Tammie Cheng MD OPERATIVE RECORD Procedure: EXCISION OF RECTAL MUCOSAL PROLAPSE. Preoperative Diagnosis: Rectal mucosal prolapse. Postoperative Diagnosis: Rectal mucosal prolapse. Anesthesia: GETA Deliver Driver: Glynn Chung M.D. Complications: None. Estimated Blood Loss: Minimal. Indication for Procedure: This patient is a 64-year-old female who presented to the office complaining of a possible hemorrhoid. She was examined and found to have rectal mucosal prolapse, especially anteriorly. She was having no pain or bleeding. She was recommended to undergo excision of rectal mucosal prolapse. The risks and benefits of this procedure were discussed with the patient and are not limited to bleeding, hematoma, wound infection or abscess, need for return to the operating room or subsequent procedures, injury to surrounding organs, recurrence of prolapse, incontinence to mucus, stool, or gas, unpleasing cosmetic result, new medical problems or worsening of chronic medical problems, and complications with anesthesia and the patient wished to proceed. Description of Procedure: The patient was brought to the operative suite and general endotracheal anesthesia was administered by the Anesthesia Department. The patient was then placed into a prone lisa-knife position on the operating table and all bony prominences were padded. The patient's buttocks were taped apart and her perianal area was prepped with Betadine. She was then draped in a sterile fashion and a time-out was performed and all parties agreed. We first began by examining the perianal skin. There were no significant abnormalities. A digital rectal examination was performed showing decreased sphincter tone. Examination of the anal canal and lower rectum was performed. There was no proctitis or masses. The patient did have redundant rectal mucosa, especially anteriorly. The anterior rectal mucosa that was prolapsing was slightly erythematous. We then chose to excise the rectal mucosa anteriorly in a wedge fashion. The pedicle proximally was tied with a 2-0 Vicryl suture. The wedge was delineated with Bovie electrocautery. The submucosal plane was entered with Bovie electrocautery. Bleeders were cauterized with the Bovie. The mucosa was then excised in a wedge down to the pedicle suture. This was removed and sent as rectal mucosa. Hemostasis was achieved with direct pressure and Bovie electrocautery. The wound bed was irrigated with saline. The incision was then closed with a running locking 3-0 Vicryl suture. There were no other redundant areas to excise that were prolapsing. A rolled Gelfoam was placed into the anorectum. Gauze and tape were placed over the anus. The patient tolerated the procedure well. All sponge, needle, and instrument counts were correct at the end of the case. The patient was then taken to the recovery area for anticipated discharge home. Diskriter Job ID: [id number] Tammie Cheng MD DOD:12/20/2019 05:47 P CAITLIN/yvette DOT:12/20/2019 06:35 P Job Number: [id number] Document Number: [id number] cc: Tammie Cheng MD [facility] [address] [place] [id number] Normal [facility] Surgical Pathologyon 020 Surgical Pathology [id number] [facility] PATHOLOGY AND LABORATORY MEDICINE [address] [place], [place] [phone] FINAL SURGICAL PATHOLOGY REPORT NAME: JENNIFFER DOMINGUEZ : 1955 64 Y F BILLING NO.: [id number] [address] PROCEDURE 12/20/2019 DATE: SURGEON: TAMMIE CHENG MD RECEIVED 12/20/2019 DATE: ATTENDING: TAMMIE CHENG MD REPORT DATE: 12/23/2019 COPIES TO: DIAGNOSIS: RECTAL MUCOSA - PORTION OF RECTAL MUCOSA AND SUBMUCOSA WITH FEATURES OF PROLAPSE Comment: There is patchy mild regenerative changes, ischemic change and erosion. Negative for dysplasia or malignancy TN/TN Signature> NICANOR LIPSCOMB M.D. CLINICAL INFORMATION: Rectal mucosal prolapse SPECIMEN: COLON, PARTIAL/TOTAL GROSS DESCRIPTION: Rectal mucosa Received in formalin is a portion of pink-ackerman to pink-kang glistening mucosal tissue measuring 2 x 1.5 x 1 cm. No mucosal lesions are identified. Cut surfaces are grossly unremarkable. Bow Maker sections are submitted in a single cassette. [id number] Disclaimer: The following statement applies to all immunohistochemistry, in situ hybridization, molecular studies, and immunofluorescence testing. The use of one or more reagents in the above tests is regulated as an analyte specific reagent (ASR). These tests were developed and their performance characteristics determined by the clinical laboratories of [facility]. They have not been cleared by the US Food and Drug Administration (FDA). The FDA has determined that such clearance or approval is not necessary. All the above immunostains were performed on paraffin embedded tissue. Appropriate positive and negative controls (where applicable) were run in parallel with the patient's specimen; these controls showed expected staining pattern, with acceptable intensity of staining. Immunohistochemical assays have not been validated on decalcified tissues. Results should be interpreted with caution given the raised possibility of false negativity on decalcified specimens. Professional Performing Location: [place] [address]. DEPARTMENT OF PATHOLOGY AND LABORATORY MEDICINE [place], [place] Normal [facility] Basic Metabolic Panelon 11-29 Calcium [Mass/Vol] 9.6 mg/dL Normal 8.4-10.4 [facility] Comment on above: Performed By: #### B MP3 #### [address] Glucose [Mass/Vol] 81 mg/dL Normal 70-100 [facility] Comment on above: Performed By: #### B MP3 #### [address] Urea nitrogen [Mass/Vol] 24 mg/dL High 7-20 [facility] Comment on above: Performed By: #### B MP3 #### [address] Anion Gap 7 Normal [facility] Comment on above: Performed By: #### B MP3 #### [address] CO2 [Moles/Vol] 26 mmol/L Normal 22-30 [facility] Comment on above: Performed By: #### B MP3 #### [address] Creatinine [Mass/Vol] 0.77 mg/dL Normal 0.52-1.25 [facility] Comment on above: Performed By: #### B MP3 #### [facility] [address], [place] GFR/1.73 sq M.predicted among blacks MDRD (S/P/Bld) [Vol rate/Area] mL/min/{1.73_m2} Normal >60 [facility] Comment on above: Performed By: #### B MP3 #### [facility] [address], [place] GFR/1.73 sq M.predicted among non-blacks MDRD (S/P/Bld) [Vol rate/Area] 82.0 mL/min/{1.73_m2} Normal >60 [facility] Comment on above: Result Comment: KDIG O guidelines provide the following GFR categories: Stage GFR(ml/min/1.73 m2) Terms G1 >=90 Normal or high G2 60-89 Mildly decreased* G3a 45-59 Mildly to moderately decreased G3b 30-44 Moderately to severely decreased G4 15-29 Severely decreased G5 <15 Kidney failure *Relative to young adult level. In the absence of evidence of kidney damage, neither GFR category G1 nor G2 fulfill the criteria for CKD. The CKD-EPI equation is validated in individuals 18 years of age and older. Currently the best equation for estimating glomerular filtration rate (GFR) from serum creatinine in children is the Bedside Benitez equation. It is less accurate in patients with extremes of muscle mass, restriction of dietary protein, ingestion of creatine, extra-renal metabolism of creatinine, or treatment with medications that affect renal tubular creatinine secretion. Performed By: #### B MP3 #### [facility] [address], [place] Chloride [Moles/Vol] 103 mmol/L Normal 98-107 [facility] Comment on above: Performed By: #### B MP3 #### [facility] [address], [place] Potassium [Moles/Vol] 4.3 mmol/L Normal 3.5-5.1 [facility] Comment on above: Performed By: #### B MP3 #### [facility] [address] [place] [address] Sodium [Moles/Vol] 136 mmol/L Normal 135-145 [facility] Comment on above: Performed By: #### B MP3 #### [facility] [address] [place] [address] Anion gap [Moles/Vol] 7 mmol/L [place], [place] Calcium [Mass/Vol] 9.6 mg/dL 8.4 - 10. 4 mg/dL [place], [place] Chloride [Moles/Vol] 103 mmol/L 98 - 107 mmol/L [place] CO2 [Moles/Vol] 26 mmol/L 22 - 30 mmol/L [place] Creatinine [Mass/Vol] 0.77 mg/dL 0.52 - 1.25 mg/dL [place], [place] EGFR IF NonAfrican [place] Citizen 82.0 mL/min >60 [place], [place] Comment on above: KDIGO guidelines pro vide the following GFR categories: Stage GFR(ml/min/1.73 m2) Terms G1 >=90 Normal or high G2 60-89 Mildly decreased* G3a 45-59 Mildly to moderately decreased G3b 30-44 Moderately to severely decreased G4 15-29 Severely decreased G5 <15 Kidney failure *Relative to young adult level. In the absence of evidence of kidney damage, neither GFR category G1 nor G2 fulfill the criteria for CKD. The CKD-EPI equation is validated in individuals 18 years of age and older. Currently the best equation for estimating glomerular filtration rate (GFR) from serum creatinine in children is the Bedside Benitez equation. It is less accurate in patients with extremes of muscle mass, restriction of dietary protein, ingestion of creatine, extra-renal metabolism of creatinine, or treatment with medications that affect renal tubular creatinine secretion. GFR/1.73 sq M predicted among blacks MDRD (S/P/Bld) [Vol rate/Area] mL/min/{1.73_m2} >60 mL/min [place], [place] Glucose [Mass/Vol] 81 mg/dL 70 - 100 mg/dL [place] Interpretation and review of laboratory results Abnormal [place], [place] Potassium [Moles/Vol] 4.3 mmol/L 3.5 - 5.1 mmol/L [place] Sodium [Moles/Vol] 136 mmol/L 135 - 145 mmol/L [place] Urea nitrogen [Mass/Vol] 24 mg/dL High 7 - 20 mg/dL [place], [place] Test Performed by [facility], [address] [place] [id number] [place], [place] Denis 02-08-2018 OPERATIVE REPORT [facility] OR DATE OF SERVICE: 02/08/2018PREOPERATIVE DIAGNOSIS: Revision cosmetic left breast.POSTOPERATIVE DIAGNOSIS: Revision cosmetic left breast.OPERATION: Removal and replacement of left breast prosthesis with larger siliconegel implant 450 mL moderate plus profile.SURGEON: Yoandy Rehman MDANESTHESIA: General.INDICATION: This woman has elected to undergo the above procedure. She hadpreviously undergone bilateral augmentation and mastopexy. She had some expectedasymmetry due to her significant breast asymmetry preoperatively. The left breast isstill smaller and therefore she elected to proceed with enlargement to replace theimplant with a larger implant and at her request she wants the pocket laterallydiminished which I will do. Also of note, when she lays flat and some implantmovement laterally she has irregularity in the medial lower portion of the breastwhich is in large part due to her chest wall asymmetry but also due to the change inbreast thickness due to her tight lower fold preoperatively. I explained to her thatshe will never have perfect symmetry. I also explained to her that this irregularitymedially may not be improved and may require additional treatment. She is preparedfor surgery and understands her short and senior care risks for surgery.PROCEDURE: Before going into the operating room, the patient was marked and sheconfirmed the plan. Once in the OR she underwent general anesthesia and the chestwall was then prepped and draped in sterile fashion. The inferior areolar incisionwas then reopened. The old [place]-Angel Luis suture was removed. Upon removal there was nonotable enlargement of the areola. Dissection was then carried down to the capsule.The capsule was opened. The old implant was removed. The pocket was then examined.The pocket position was satisfactory with the muscle released to the midline asexpected. On palpation of chest wall, she definitely has more depression of the ribsin that area than on the right side and with the implant out it is certainly morenoticeable. This is also in part due to uneven distribution of her breast parenchymadue to her ewiiaapaayp pole prior to any surgery. At this point, I did a lateral capsulerelease to freshen the edges and then a lateral capsulorrhaphy to reduce the pocketsize laterally and this was done with a double running 3-0 Mersilene suture. Thepocket was then irrigated with saline followed antibacterial solution. Gloves werethen changed. I did use a sizer and felt a 450 gave her the best volume match.Therefore a 450 mL moderate plus profile gel implant was then placed withoutdifficulty. She was sat upright and improved volume was noted between the 2 breasts.As expected, she will have asymmetries. She did have improvement of the lateralportion of the breast and improvement medially. With her laying flat, the left [facility] PATIENT NAME: JENNIFFER DOMINGUEZ [address] [facility] [address] Eng [facility] REC #: [id number], [place] [id number] DATE:DISCHARGE DATE:OPERATIVE REPORT ATTENDING PHY: Yoandy Rehman MDimplant definitely was less lateral and this also helped medially as the waterimplant did help camouflage the chest wall asymmetry a little bt better. However,there was still some differences in some thickness of the tissues as relates to hernatural breast distribution. At this point, the pocket was examined and hemostasisconfirmed. The old capsule was then closed with interrupted 3-0 Monocryl, deep layerwith interrupted 3-0 Monocryl, dermis was then closed with interrupted 4-0 Monocrylfollowed by subcuticular 4-0 Monocryl. A dressing was applied with Medipore tapewith silk to give her more lateral support temporarily and then she was placed in gracie. She tolerated the procedure. Counts were correct. Yoandy Rehman, MDSC/[id number]: 02/08/2018 12:53DT: 02/08/2018 14:01SSI File#: [id number] #: [id number]/Reviewed by03/26/18 0950 CARST [facility] PATIENT NAME: JENNIFFER DOMINGUEZ [address] [facility] [address] Eng MEDICAL REC #: [id number], [place] [address] DATE:DISCHARGE DATE:OPERATIVE REPORT ATTENDING PHY: Yoandy Rehman MD [facility] 06-15-2017 OPERATIVE REPORT [facility] DATE OF SERVICE: 06/15/2017PREOPERATIVE DIAGNOSIS: Cosmetic breast and arm contouring.POSTOPERATIVE DIAGNOSIS: Cosmetic breast and arm contouring.PROCEDURE:1. Bilateral augmentation mastopexy.2. Bilateral brachioplasty.ANESTHESIA: General.INDICATIONS: This woman has elected to undergo the above procedure. She is verywell of her existing asymmetries. Her right breast is a little larger. It is moreptotic. The left breast has more of a constricted lower pole. She understands thatshe will always have asymmetry. We discussed using different size implants, plus Iwill take some volume out of the left, likely as part of the mastopexy portion togive her more symmetry. I made it very clear that she will not have perfect symmetryand might even need additional surgery. The patient also has elected to proceed withbrachioplasty. She understands the scars, location of the scars, unsatisfactoryscars and even scars widening, numbness in the arm and forearm, seroma, hematoma.She is aware of the issues with implants including infection, bleeding, capsularcontracture, implant deflation, asymmetry, irregularities, palpability, rippling,initial mammogram, reoperation or need for additional surgery.PROCEDURE DESCRIPTION: Before going to the operating room, the patient was markedstanding. Her breasts were marked, the nipple position based on her inframammaryfolds. The left fold is higher and needs to come down almost 2 cm to match the rightas well as to give more length to the lower pole. Markings were made on her armswith them held at 90/90. She was then taken to the operating room. After undergoinggeneral anesthesia, her chest wall and arms were then prepped and draped in sterilefashion. Her arms were covered, and attention was first turned to the chest wall.The left areola was incised at its borders and inferiorly areolar incision dissectionwas carried down to the chest wall. A subpectoral pocket was developed, dual plane,releasing the inferior attachments to the muscle to the midline to allow thepectoralis muscle to rise up. In addition, I did an aggressive scoring of the lowerpole vertically in order to help with the tighter lower pole, in addition to loweringit approximately 2 cm with additional scoring. Hemostasis was then achieved. Gloveshad been changed and a 325-mL plus profile gel implant was then placed. The breastwas intact and based on the markings, the nipple position was confirmed, need to bemoved approximately 3 cm on this side for elevation.Before proceeding any further at this point, the pocket was examined, and hemostasiswas again confirmed. The parenchyma was then closed over the implant with 3-0 [facility] PATIENT NAME: JENNIFFER DOMINGUEZ [address] [facility] [address] Eng [facility] REC #: [id number], [place] [id number] DATE:DISCHARGE DATE:OPERATIVE REPORT ATTENDING PHY: Yoandy Rehmanonobenjamin. Next, an interlocking [place]-Angel Luis purse string suture was then placed andtied down at 3.5 cm, which was actually slighter larger then her preoperative areolardiameter. This was then followed by a subcuticular 3-0 Monoderm.Attention was then turned to the right wrist. The areolar was incised and an incisionwas made at the inferior edge of the areola, dissected down the chest wall, andsubpectoral pocket was then developed in a similar fashion, releasing inferior cutsat the muscle to the midline. Pocket dissection was then completed. It wasirrigated with saline, followed by antibacterial solution and hemostasis achieved. Rubina placed a 300-mL moderate plus profile gel implant on this side. The patient wasthen sat upright, and the breast was tacked closed with the preoperative markings asa guide as well as the opposite breast. She seemed to have satisfactory volumeoverall with a little bit more fullness in the lower pole which I will be removing.She was laid back down. The arcelia were removed. Next, the superior portion wasdeepithelialized for the areolar insert with completing a vertical mastopexy. Thevertical portion was then excised to include skin and subcutaneous tissue to removesome volume to have volume symmetry and completing the mastopexy, carrying it out andinto a J-fashion laterally. Hemostasis was then achieved and confirmed in a pocket.The parenchyma was closed over the implant, brining the pillars that we createdtogether with interrupted 3-0 Monocryl.Next, the vertical oblique portion was closed with a 2-layer running 2-0 Monodermcoil. The nipple-areolar complex was then inset using a [place]-Angel Luis interlocking pursestring suture as was done on the opposite side, tying it down to 3.5 cm. This wasthen followed by a running subcuticular 3-0 Monoderm coil. The vertical oblique wasthen also closed with a final layer of running 5-0 nylon. Xeroform was applied andthe breasts were covered while attention was turned to the arms.The right arm was infiltrated with tumescent solution of approximately 400 mL. Next,power-assisted liposuction was then performed to remove volume and aggressivelysuctioning in the area of skin to be resected. Next, using the preoperative markingsas a guide, progressive arcelia were placed to confirm the amount of skin to beexcised in a fishmouth fashion. The skin was then incised at its edges and then froma proximal to distal direction, it was avulsed with a nice even plane as a result ofthe dissection that was done earlier. Hemostasis was immediately present.At this point the fascial suspension sutures were placed with interrupted 2-0Monocryl. This was then followed by a deep dermal running 2-0 Monoderm quill and asubcuticular 4-0 Monocryl. In the axilla, this was continued on with a 81-oexynjM-khuuyn, transposing the limbs and the inset with interrupted 3-0 Monocryl, followedby subcuticular 4-0 Monocryl.Attention was then turned to the left arm. This had already been infiltrated withtumescent solution. Gain, suctioning was performed to debulk the area andaggressively suctioning in the area of skin resection. Once this was completed, the [facility] PATIENT NAME: JENNIFFER DOMINGUEZ [address] [facility] [address] Eng [facility] REC #: [id number], [place] [id number] DATE:DISCHARGE DATE:OPERATIVE REPORT ATTENDING DAVID: Yoandy Rehman MDplanned incisions were then confirmed with arcelia and to match the opposite side.The arcelia were removed and a fishmouth excision was then completed from proximal todistal to persevere soft tissue with 2-0 Monocryl. This was then followed by thedermal running 2-0 Monoderm quill and subcuticular 4-0 Monocryl. The 75-tngbrvB-deknsz was once again placed in the axilla, transposing the limbs and in-settingwith interrupted 3-0 Monocryl, followed by subcuticular 4-0 Monocryl.Upon completion, she had nice size match in both arms. Mastisol and Steri-Stripswere then applied. She was put in a wrap. She tolerated the procedure and counts werecorrect. Yoandy Rehman, MDSC/[id number]: 06/15/2017 15:42DT: 06/15/2017 18:08SSI File#: [id number] #: [id number]/Reviewed by07/13/17 0858 CARST [facility] PAT[facility] NAME: [facility] REC [facility]: [id number], [place] [id number] DATE:DISCHARGE DATE:OPERATIVE REPORT ATTENDING PHY: Yoandy Rehman MD [facility] 05-24-2017 Protein mass conc Procedure Date and T saranya: 05/24/17 1704Test Reason :Blood Pressure : / mmHGVent. Rate : 065 BPM Atrial Rate : 065 BPMP-R Int : 142 ms QRS Dur : 082 msQT Int : 440 ms P-R-T Axes : 033 002 017 degreesQTc Int : 457 msNormal sinus rhythmNormal ECGNo previous ECGs availableConfirmed by JOHN STEWARD A. ([id number]) on 05/25/2017 12:19:01 AMReferred By: Yoandy Rehman Confirmed By:Rebekah STEWARD M.D.FACC StefanyDDandT: 05/24/17 1704TDandT:[facility] PATIENT NAME: JENNIFFER DOMINGUEZ Jane Eng MEDICAL REC #: [id number], [place] [id number] DATE:DISCHARGE DATE:ATTENDING PHY: Yoandy Rehman MDELECTROCARDIOGRAM REPORTCLMuhlenberg [facility] PATIENT NAME: JENNIFFER DOMINGUEZ [facility] Dr[address] Eng MEDICAL REC #: [id number], [place] [address] DATE:DISCHARGE DATE:ATTENDING PHY: Yoandy Rehman MDELECTROCARDIOGRAM REPORT Normal [facility] Marcelo Mcginnis 09-04-2000 CONVERTED ELECTRONIC SIGNATURE MYRANDA FLORES M.D., PATHOLOGIST (Electronic signature on file) Final Signed Out: 09/04/2000 16:26 [facility] CONVERTED FINAL DIAGNOSIS RIGHT BREAST, EXCISIONAL BIOPSY - BENIGN BREAST TISSUE WITH FOCAL CYST FORMATION AND APOCRINE METAPLASIA. WELL DIFFERENTIATED ADIPOSE TISSUE WITH FOCAL FAT NECROSIS (SEE COMMENT). COMMENT: Much of the specimen consists of well differentiated adipose tissue which may represent a lipoma. Clinical correlation is needed. [facility] CONVERTED ORDERING PROVIDER Ordering Provider: JIMY ROWAN [facility] Vital Signs Date Time Vital Sign Value Performing Clinician Rod griffin 12-20-2019 14:45-0400 Body Temperature 97 [degF] [facility], [place] 12-20-2019 14:45-0400 BP Diastolic 83 mm[Hg] [facility] , [place] 12-20-2019 14:45-0400 BP Systolic 131 mm[Hg] [facility] , [place] 12-20-2019 14:45-0400 Pulse (Heart Rate) 61 /min [facility] 12-20-2019 14:45-0400 Pulse Oximetry 99 % [facility] , [place] 12-20-2019 14:45-0400 Respiratory Rate 16 /min [facility], [place] 12-20-2019 10:53-0400 BMI (Body Mass Index) 28.32 kg/m2 [facility], [place] 12-20-2019 10:53-0400 Body weight 74.84 kg [facility] , [place] 12-20-2019 10:53-0400 Height 162.6 cm [facility] , [place] 12-13-2019 14:48-0400 BMI (Body Mass Index) 2.03 kg/m2 Tammie Lara [facility] [place] 12-13-2019 14:48-0400 Body Temperature 99 [degF] Tammie Lara [facility], [place] 12-13-2019 14:48-0400 Body weight 5.35 kg Tammie Lara [facility] , [place] 12-13-2019 14:48-0400 BP Diastolic 86 mm[Hg] Tammie Lara [facility] , [place] 12-13-2019 14:48-0400 BP Systolic 148 mm[Hg] Tammie Lara [facility] , [place] 12-13-2019 14:48-0400 Height 162.6 cm Tammie Lara [facility] , [place] 12-13-2019 14:48-0400 Pulse (Heart Rate) 80 /min Tammie Lara [facility], [place] 12-13-2019 14:48-0400 Pulse Oximetry 99 % Tammie Lara [facility] , [place] 12-13-2019 14:48-0400 Respiratory Rate 16 /min Tammiekorey Lara [facility], [place] Encounters Encounter Date Encounter Type Care Provider Facility Start: 11-28-2024 ambulatory [facility] Facility:[facility] Start: 11-28-2024 Patient encounter procedure DILLAN HUMPHREY Work Phone: -Ultrasound [facility] Work Phone: Start: 11-21-2024 End: 11-21-2024 Patient encounter procedure DILLAN HUMPHREY Work Phone: -Outpatient Breast Imaging Work Phone: Start: 11-21-2024 End: 11-21-2024 ambulatory [facility] Facility:[facility] Start: 11-12-2024 End: 11-12-2024 ambulatory DILLAN HUMPHREY Work Phone: -Radiology [facility] Start: 11-12-2024 End: 11-12-2024 Patient encounter procedure Katherine Moreno BRIDGE ENGINEER-C -Radiology [facility] Work Phone: Start: 11-12-2024 End: 11-12-2024 ambulatory GELNN PEÑA Facility:[facility] Start: 06-05-2024 End: 06-06-2024 ambulatory [facility] Comment on above: Obstructive sleep ap rose marie (adult) (pediatric) Start: 05-16-2024 End: 08-15-2024 Transcribe Orders Brooke Torres MD Work Phone: [facility] Comment on above: Other hypersomnia (P rimary Dx) Obstructive sleep ap rose marie (adult) (pediatric) (Primary Dx) Start: 04-30-2024 End: 04-30-2024 ambulatory GLENN PEÑA Facility:[facility] Start: 04-03-2024 ambulatory GLENN PEÑA Facility:[facility] Start: 12-29-2023 ambulatory Dillan Humphrey Facility: [facility] Start: 11-28-2023 ambulatory Dillan Humphrey Facility: [facility] Start: 11-06-2023 ambulatory Clare Gallardo Facilit y:[facility] Start: 04-14-2023 ambulatory Ann-Marie Rivers Facility: [facility] Start: 11-25-2022 End: 11-30-2022 ambulatory Jade BAHBRODY Facility:A Start: 02-15-2021 End: 02-16-2021 Subsequent hospital visit by physician Brooke Torres MD [facility] Start: 12-10-2020 End: 12-11-2020 ambulatory [facility] Start: 11-10-2020 End: 11-10-2020 Subsequent hospital visit by physician Madie Birmingham Mammography Room 1 [facility] BREAST CTR HG IMG Comment on above: Arrived Start: 03-06-2020 End: 03-06-2020 Subsequent hospital visit by physician Dillan Humphrey Work Phone: [facility] Start: 12-20-2019 End: 12-20-2019 Subsequent hospital visit by physician Tammie Cheng Work Phone: [facility] Comment on above: Rectal mucosa prolap se (Primary Dx) Start: 12-13-2019 End: 12-13-2019 Subsequent hospital visit by physician Tammie Cheng Work Phone: [facility] Pre-Admit Testing Comment on above: Arrived Start: 02-08-2018 Evaluation and management of inpatient Yoandy Rehman Facility:[facility] Start: 06-15-2017 Evaluation and management of inpatient Yoandy Rehman Facility:[facility] Start: 05-24-2017 Patient encounter procedure Yoandy Rehman Facility:[facility] Start: 09-01-2000 End: 09-01-2000 Patient encounter procedure Jimy Rowan Work Phone: [facility] Start: 09-01-2000 Results Only Jimy Rowan Work Phone: [facility] Procedures Date Procedure Procedure Detail Performing Clinician Start: 11-28-2024 Ultrasonography of limb DILLAN HUMPHREY Work Phone: Start: 11-21-2024 Dual energy X-ray absorptiometry DILLAN HUMPHREY Work Phone: Start: 11-21-2024 Screening mammography D AVID HUMPHREY Work Phone: Start: 11-12-2024 X-ray of knee, four or more views DILLAN HUMPHREY Work Phone: Start: 06-06-2024 POLYSOMNOGRAPHY Lawrence Torres MD Work Phone: Start: 11-10-2020 Us breast uni real t saranya with image limited Milind Jenkins Work Phone: Start: 11-10-2020 End: 11-10-2020 Diagnostic mammography computer-aided detcj bi Unknown Provider Result Start: 03-06-2020 Radex hip unilateral with pelvis 2-3 views Dillan Humphrey Work Phone: Start: 12-20-2019 OPERATIVE REPORT 3m Sca nning Start: 12-13-2019 Basic metabolic pane l calcium total M[address]a Lane Work Phone: Start: 12-13-2019 Ecg routine ecg w/le ast 12 lds w/i&r [address]ouna Lane Work Phone: Start: 05-24-2017 Ecg routine ecg w/le ast 12 lds i&r only Yoandy Rehman Start: 09-01-2015 Mammography Jimy christopher Start: 09-01-2000 CONVERTED SURGICAL PATHOLOGY Jimy Rowan Work Phone: Plan of Treatment Date Care Activity Detail Author Start: 08-09-2031 RSV Immunization for Adults (1 - 1-dose 75+ series) RSV Immunization for Adults (1 - 1-dose 75+ series) [facility] Start: 12-08-2027 DTaP/Tdap/Td vaccine (2 - Td or Tdap) DTaP/Tdap/Td vaccine (2 - Td or Tdap) [facility] Work Phone: Start: 12-08-2027 DTaP/Tdap/Td Vaccine s (2 - Td or Tdap) DTaP/Tdap/Td Vaccines (2 - Td or Tdap) [facility] Start: 12-30-2024 Influenza vaccination Influenz a Vaccine (Season Ended) [facility] Start: 05-16-2024 End: 05-16-2025 Multiple sleep latency test Multiple sleep latency test Sleep Center Routine Other hypersomnia Expected: 05/16/2024 (Approximate), Expires: 05/16/2025 [facility] [facility] Work Phone: Comment on above: Expected: 05/16/2024 (Approximate), Expires: 05/16/2025 Start: 05-01-2024 Medicare Advantage Annual Wellness Visit Medicare Advantage Annual Wellness Visit [facility] Start: 12-31-2023 COVID-19 Vaccine ( season) COVID-19 Vaccine ( season) [facility] Start: 12-31-2023 Influenza vaccination Influenza Vacc ine (#1) [facility] Start: 11-10-2022 Screening for malign ant neoplasm of breast Breast cancer screen [facility] Work Phone: Start: 11-10-2021 Screening for malign ant neoplasm of breast Mammogram [facility] Start: 12-30-2020 Influenza vaccination Flu vaccine (# 1) [facility] Work Phone: Start: 12-12-2020 Creatinine [place] Start: 12-12-2020 Potassium monitoring Potassium monit [place], [place] Start: 09-03-2020 COVID-19 Vaccine (2 - Moderna 2-dose series) COVID-19 Vaccine (2 - Moderna 2-dose series) [facility] Work Phone: Start: 12-31-2019 Influenza vaccination M [place], [place] Start: 12-20-2019 End: 12-20-2019 Appointment 12/20/2019 Appointment General Surgery Tammie Cheng MD [address] [place] [address] [address], [address] [place] [address] [phone] [facility] General Surgery Start: 07-30-2019 LIPID SCREEN LIPID SCREEN [facility] Start: 07-29-2017 DIABETES SCREEN DIABETES SCREEN [facility] Start: 08-31-2016 Mammography MAMMOGRAM [facility] Start: 2006 Screening for malign ant neoplasm of breast Breast cancer screen [place], [place] Start: 2006 Screening for malign ant neoplasm of colon Colon cancer screen colonoscopy [place], [place] Start: 2006 Shingles Vaccine (1 of 2) Shingles Vaccine (1 of 2) [place] Start: 2006 SHINGRIX VACCINE (1 of 2) SHINGRIX VACCINE (1 of 2) [facility] Start: 2006 Tuberculosis screening [facility] CANCER SCREENING,SEE MODIFIER [facility] Start: 2006 Zoster Vaccines (1 of 2) Zoste r Vaccines (1 of 2) [facility] Start: 2001 Screening for malign ant neoplasm of colon Colon cancer screen colonoscopy [facility] Work Phone: Start: 1996 Lipid panel Lipid screen [place], [place] Start: 1986 HPV TESTING HPV TESTING [facility] Start: 1986 Screening for malign ant neoplasm of cervix [facility] Work Phone: Start: 1977 PAP TESTING PAP TESTING [facility] Start: 1977 Screening for malign ant neoplasm of cervix [place], [place] Start: 08-09-1975 DTaP/Tdap/Td vaccine (1 - Tdap) DTaP/Tdap/Td vaccine (1 - Tdap) [place] Start: 08-09-1975 Urine microalbumin profile DTAP,TDAP,TD (1 - Tdap) [facility] Start: 1974 ANNUAL PCP TEAM PORTABLE IRRIGATION OPERATOR WES DISEASE VISIT ANNUAL PCP TEAM CHRONIC DISEASE VISIT [facility] Start: 1974 BP CONTROLLED (<130/80) BP CONTROLLE D (<130/80) [facility] Start: 1974 HEPATITIS C SCREENING HEPATITIS C [facility] Start: 1974 Hepatitis C screening Hepatitis C [facility] Start: 1974 HIV SCREENING HIV SCREENING [facility] Start: 08-09-1971 HIV screening HIV screen [place], [place] Start: 1968 Depression Screening Depression Scre [facility] Start: 1956 Creatinine measurement Creatinine mo nitoring [place], [place] Start: 1956 Hepatitis C screening Hepatitis C [place], [place] Start: 1956 Lipid panel Lipid Panel [facility] Start: 1956 Potassium monitoring Potassium monit [place], [place] Start: 1956 Screening for malign ant neoplasm of colon [facility] Start: 1956 Screening for osteoporosis Bone Density Scan [facility] End: 12-20-2019 Blood glucose - POCT Blood glucose - POCT Point of Care Testing STAT One Time for 1 Occurrences starting 12/20/2019 until 12/20/2019 [place] Comment on above: One Time for 1 Occur rences starting 12/20/2019 until 12/20/2019 End: 12-20-2019 Creatinine [Mass/Vol] Creatinine, serum Lab STAT One Time for 1 Occurrences starting 12/20/2019 until 12/20/2019 [place] Comment on above: One Time for 1 Occur rences starting 12/20/2019 until 12/20/2019 EKG 12 Lead EKG 12 Lead ECG Routine 12/13/2019 3:26 PM EDT [place] End: 12-20-2019 Intermittent pulse oximetry Pulse Oximetry Spot Check Respiratory Care Routine One Time for 1 Occurrences starting 12/20/2019 until 12/20/2019 [place], [place] Comment on above: One Time for 1 Occur rences starting 12/20/2019 until 12/20/2019 Oxygen therapy [[facility] Data Set] Initiate Oxygen Therapy Protocol Respiratory Care Routine Daily until discontinued [facility]/20/2019 [facility]: Daily until disconti nued starting 12/20/2019 Phase I & II - meter ed glucose Phase I & II - metered glucose Point of Care Testing Routine As Needed until discontinued starting 12/20/2019 [facility] Comment on above: As Needed until disc ontinued starting 12/20/2019 End: 12-20-2019 Potassium w/ Reflex to Magnesium Potassium w/ Reflex to Magnesium Lab Routine One Time for 1 Occurrences starting 12/20/2019 until 12/20/2019 [facility] Comment on above: One Time for 1 Occur rences starting 12/20/2019 until 12/20/2019 End: 12-20-2019 , urine , urine Lab STAT One Time for 1 Occurrences starting 12/20/2019 until 12/20/2019 [facility] Comment on above: One Time for 1 Occur rences starting 12/20/2019 until 12/20/2019 End: 12-20-2019 Protime-INR Protime-INR Lab STAT One Time for 1 Occurrences starting 12/20/2019 until 12/20/2019 [facility] Comment on above: One Time for 1 Occur rences starting 12/20/2019 until 12/20/2019 Spirometry panel Incentive alana metry Respiratory Care Routine Q1H PRN until discontinued starting 12/20/2019 [facility] [place] Comment on above: Q1H PRN until discon tinued starting 12/20/2019 End: 12-20-2019 Surgical Pathology Surgical Pathology Lab Routine Once for 1 Occurrences starting 12/20/2019 until 12/20/2019 [facility] Comment on above: Once for 1 Occurrenc es starting 12/20/2019 until 12/20/2019 Surgical Pathology Surgical Path ology Lab Routine 12/20/2019 12:10 PM EDT [facility] [place] Immunizations Immunization Date Immunization Notes Care Provider Jhon damon 03-30-2023 influenza virus vacc ine, unspecified formulation [facility] 5 [facility] Payers Date Payer Category Payer Medicare HMO [employer] A[employer] MEDICAR E ADVANTAGE [id number] 2024 Medicare [id number] 2023 Self-pay 2023 Unknown 2022 Unknown 2017 Unknown [id number] 1959 Unknown [id number] 1955 Unknown [id number] 1955 Unknown [id number] 2.16.840.1.752648.3.579.2.627 Unknown [id number] Unknown [id number] 2.16.840.1.248051.3.579.2.273 Unknown [id number] 2.16.840.1.784631.3.579.2.273 Unknown [id number] 2.16.840.1.554993.3.579.2.273 Unknown [id number] 2.16.840.1.085757.3.579.2.630 Unknown [id number] 2.16.840.1.608704.3.579.2.630 Unknown [id number] 2.16.840.1.161347.3.579.2.630 Unknown [id number] 2.16.840.1.786328.3.579.2.630 Unknown [id number] 2.16.840.1.135445.3.579.2.630 Unknown [id number] 2.16.840.1.558298.3.579.2.462 Unknown [id number] 2.16.840.1.789458.3.579.2.462 Unknown [id number] 2.16.840.1.326477.3.579.2.462 Unknown [id number] 2.16.840.1.767717.3.579.2.462 Unknown [id number] 2.16.840.1.547583.3.579.2.462 Social History Date Type Detail Facility Start: 12-13-2019 End: 01-28-2020 Tobacco smoking status NHIS Never smoker [facility] [place] Start: 12-13-2019 End: 01-28-2020 [facility] and [facility] Start: 12-13-2019 End: 04-19-2022 Alcohol intake Ex-drinker (finding) [facility] [employer] [facility] Start: 1955 Sex Assigned At Not on file M [place], [place] Exposure to SARS-CoV -2 (event) [facility] sure [facility] [place] [place] Start: 04-19-2022 History of Social function [facility] [employer] Start: 04-19-2022 Tobacco use panel [facility] Start: 11-29-2021 Sex Female (finding) [facility] Tobacco smoking stat us MEIS Unknown if ever smoked [facility] Work Phone: Start: 1955 Sex Assigned At Female W [facility] Radiology Diagnostic study note 11-12-2024 Note Date & Type Note Facility 11-12-2024 Radiology Diagnostic study note [facility] Imaging Services [address] [place], [place] [address] Knee 4 or More Views MR#: [id number] Acct: [id number] Name: JENNIFFER DOMINGUEZ Rep #: [id number] 7 : 1955 F 69 From: Lisa Reddy MD PCP: DILLAN HUMPHREY Status: REG CLI Study:Knee 4 or More Views Date of Exam: 11/12/24 Exam# [id number] Ordering Dr: Chasity Moreno sa BRIDGE ENGINEER-C EXAM: XR Right Knee Complete, 4 or More Views CLINICAL INDICATION: SPRAIN OF UNSPECIFIED SITE OF RIGHT KNEE, INITIAL ENCOUNTER TECHNIQUE: Four or more views of the right knee. COMPARISON: No relevant prior studies available. FINDINGS: BONES/JOINTS: Unremarkable. No acute fracture. No dislocation. SOFT TISSUES: Unremarkable. RAD/Knee 4 or More Views IMPRESSION: No acute fracture. Reading [facility] CC: CEDRIC Moreno; DILLAN HUMPHREY ~ Lead Electrician: Signed [facility] Evaluation note Note Date & Type Note Facility Evaluation note Diagnosis Obstructive sleep apnea (adult) (pediatric) documented in this encounter [facility] Evaluation note Note Date & Type Note Facility Evaluation note Diagnosis Other hypersomnia- Primary documented in this encounter [facility] Evaluation note Note Date & Type Note Facility Evaluation note Diagnosis Obstructive sleep apnea (adult) (pediatric)- Primary documented in this encounter [facility] Evaluation note Note Date & Type Note Facility Evaluation note No assessment information availa [facility] Work Phone: Reason for referral (narrative) Note Date & Type Note Facility Reason for referral (narrative) No reason for referral information available [facility] Work Phone: Reason for visit Narrative Hospital - Outpatient (Routine) - Closed Note Date & Type Note Facility Reason for visit Narrative Specialty Diagnoses / Procedures Referred By Ellie alba Referred To Contact Sleep Medicine Diagnoses Obstructive sleep apnea (adult) (pediatric) Procedures Polysomnography Brooke Torres MD [address] [place] [address] Phone: tel: fax: [facility] [address] [place] [address] Phone: tel: fax: Referral ID Status Reason Start Date Expiration Date Visits Re quested Visits Authorized [id number] Closed 05/16/2024 05/11/2025 1 1 [facility] Summary Purpose Family History No Family History Records FoundNo Family History Records FoundNo Family History Records FoundNo Family History Records FoundNo Family History Records FoundNo Family History Records FoundNo Family History Records FoundNo Family History Records FoundNo Family History Records Found Advance Directives Documents on File Type Date Recorded Patient Bow Maker Expl anation Advance Directives and Living Will Power of Cook Helper Preserves Documents on File Type Date Recorded Patient Bow Maker Expl anation ACP-Advance Directive ACP-Power of Cook Helper Preserves Latest Code Status on File Code Status Date Activated Date Inactivated Comments Full Code 12/20/2019 10:07 AM Latest Code Status on File Code Status Date Activated Date Inactivated Comments Full Code 12/20/2019 10:07 AM 12/23/2019 9:17 AM Discharge Instructions * Instructions* Yuki Seaman, SAMIR - 12/13/2019 Please shower with an antibacterial soap( example DIAL OR SAFEGUARD) Please bring your [facility] Surgical Information folder on the day of surgery. Please ryan the last dose taken (date and time ) on your Daily Medications List provided in your After Visit Summary. Please bring a photo ID and insurance information Do NOT take the following medications on the morning of surgery-lisinopril, dexedrine. TAKE the following medications the morning of your surgery-none. You may take your prescription pain medications. You may take Tylenol (Acetaminophen) if needed forpain. No Motrin, Ibuprofen, or Advil 24 hours prior to surgery, or longer if instructed by your surgeon. No Aleve or Naprosyn 3 days prior to surgery, or longer if instructed by your surgeon. If you are on BLOOD THINNERS or ASPIRIN, no aspirin for 5 days prior to surgery. Follow all instructions given to you by Dr. Cheng You will receive a reminder call the day before surgery with your Same Day Surgery arrival time. If you have specific questions, please call your surgeon. documented in this encounter* Instructions* Glynn Chung MD - 12/20/2019 POST-OPERATIVE INSTRUCTIONS FOR ANORECTAL SURGERY OBTAIN THE FOLLOWING FROM THE [facility]UG[facility]ORE PAIN MEDICATION - A pain medication prescription will be provided. However, Advil (ibuprofen) is often satisfactory a few days after surgery and is less constipating. CITRACAL or similar fiber supplement is recommended on a daily basis for 2 weeks. COLACE or MIRALAX is recommended on a daily basis for 2 weeks to avoid hard bowel movements. SPECIAL INSTRUCTIONS Remove the external gauze later in the day or before your first shower or bath. On occasion a dissolvable foam (Gelfoam ) or gauze (Surgicel ) is used in the anal canal. This material will pass spontaneously often turning brown in color. Flush it down the toilet. Avoiding straining or sitting on the toilet for long periods of time or heavy lifting especially the first day after surgery. The increased pressure can aggravate swelling and bleeding. Slight bleeding and drainage as usual after this procedure. Report excessive bleeding or passage ofclots to the office. Use non-cotton gauze, sanitary pads or minipads as needed for bleeding and drainage. Keep perianal area clean. Make-up cleansing pads may be more comfortable than wet toilet paper which tends to crumble. Unscented and alcohol free baby wipes are also useful. Warm showers or baths are recommended 2 to 3 times per day or as needed in the post- operative period for discomfort. Avoid a hot shower immediately after surgery since the sedation used during procedure may precipitate light-headedness or fainting. Resume a regular diet. There are no dietary restrictions except for popcorn (for two weeks) and forthose food that are known to cause you diarrhea. Purchase a hand-held shower sprayer to keep the tissues clean in the perineum. A Rinse- Wily can be purchased at the [employer] store. Since pain medications can cause constipation, a fiber product (such as Metamucil or Citrucel) is recommended after surgery for at least two weeks. Report severe constipation or diarrhea to the office.Contact the office immediately if you are unable to urinate or if you have fever or chills. Do Not Use enemas or suppositories after surgery unless specifically instructed by the office. Contact the office the following business day after surgery to inform us of your progress and to make your follow-up appointment. Do not drive for 24 hours or while you are taking prescription pain medication. A small amount of bloody drainage can occur for several days and sometime weeks depending on the nature and severity of the surgical procedure Tammie Cheng MD PLEASE CALL [phone] if you have any questions documented in this encounter History of Present Illness * Kevin Castillo - 12/13/2019 2:30 PM EDT Labs obtained on first attempt with 22 gauge needle at L AC site, patient tolerated well, site benign. documented in this encounter* Celena Fay RN - 12/20/2019 2:55 PM EDT Discharge information given to the patient. Patient and family verbalized understanding of information. All questions were answered before discharge. Patient ambulated, denies dizziness or nausea. Tolerating PO fluids and crackers. Vital signs are stable. Patient has changed and is being discharged home in a wheelchair with valuables. * Celena Fay RN - 12/20/2019 1:31 PM EDT Pt restless, C/o surgical pain. Emotional support offered. Fluids given and oskar well. Speech littleslurry. O X4 cooperative. Resting turned to right side encouraged to avoid putting direct pressure on rectal area to help with discomfort with + voiced understanding. * Oly Adam RN - 12/20/2019 10:27 AM EDT Pt ready for surgery documented in this encounter Assessments Diagnosis Rectal mucosa prolapse Rectal prolapse Chief Complaint and Reason for Visit Chief Complaint Admit Date SCREENING, MENOPAUSE November 21, 2024 3:4 9pm SUBCUTANEOUS NODULE OF BOTH LEGS November 282024 9:44am Additional Source Comments INFORMATION SOURCE (unrecogn ized section and content) DATE CREATED AUTHOR 04/09/2018 [facility] [place] DATE CREATED AUTHOR AUTHOR'S ORGANIZ ATION 11/11/2020 [facility] [employer] DATE CREATED AUTHOR AUTHOR'S ORGANIZ ATION 11/18/2020 [facility] [employer] DATE CREATED AUTHOR AUTHOR'S ORGANIZ ATION 12/19/2020 [facility] DATE CREATED AUTHOR AUTHOR'S ORGANIZ ATION 12/07/2022 [facility] DATE CREATED AUTHOR AUTHOR'S ORGANIZ ATION 01/12/2024 [facility] DATE CREATED AUTHOR AUTHOR'S ORGANIZ ATION 06/08/2024 [facility] [employer] [facility] DATE CREATED AUTHOR AUTHOR'S ORGANIZ ATION 11/10/2024 [facility] DATE CREATED AUTHOR AUTHOR'S ORGANIZ ATION 11/27/2024 [facility] Source Comments (unrecognize d section and content) In the event this informatio n is protected by the Federal Confidentiality of Alcohol and Drug Abuse Patient Records regulations: The Federal rules restrict any use of the information to criminally investigate or prosecute any alcohol or drug abuse patient.[facility] Teams (unrecognized sec tion and content) Deputy County Attorney Relationship Specialty Start Date End Date Dillan Humphrey DO [address] [place] [phone] PCP - General 10/29/19 Deputy County Attorney Relationship Specialty Start Date End Date Dillan Humphrey DO [address] [place] [address] [phone] PCP - General 10/29/19 Team Status: Active Member Role/Relationship Status Dates DILLAN HUMPHREY Primary Care Provider Active Team Status: Inactive Member Role/Relationship Status Dates KAM GRIMALDO Primary Care Provider Active Start: November 12, 2024 End: November 12, 2024 CEDRIC Quintero Attending Provider Active Star t: November 12, 2024 End: November 12, 2024 CEDRIC Quintero Referring Provider Active Star t: November 12, 2024 End: November 12, 2024 Team Status: Inactive Member Role/Relationship Status Dates KAM GRIMALDO Primary Care Provider Active Start: November 21, 2024 End: November 21, 2024 PAM JALLOH Attending Provider Active Start: November 21, 2024 End: November 21, 2024 PAM JALLOH Referring Provider Active Start: November 21, 2024 End: November 21, 2024 Team Status: Active Member Role/Relationship Status Dates KAM GRIMALDO Primary Care Provider Active Start: November 28, 2024 PAM JALLOH Attending Provider Active Start: November 28, 2024 PAM JALLOH Referring Provider Active Start: November 28, 2024 Goals (unrecognized section and content) Goals may be documented in a n alternate sectionGoals may be documented in an alternate section FOR RECORDS PERTAINING TO PATIENTS WHO ARE OR HAVE BEEN ENROLLED IN A CHEMICAL DEPENDENCY/SUBSTANCEABUSE PROGRAM, SOME INFORMATION MAY BE OMITTED. This clinical summary was aggregated from multiple sources. Caution should be exercised in using it in the provision of clinical care. This summary normalizes information from multiple sources, and as a consequence, information in this document may materially change the coding, format and clinical context of patient data. In addition, data may be omitted in some cases. CLINICAL DECISIONS SHOULD BE BASED ON THE PRIMARY CLINICAL RECORDS. [facility] [employer] provides no warranty or guarantee of the accuracy or completeness of information in this document.
== END | disposition home or self-care (01) ==
LOC: US 09:45
DX: R22.43 Localized swelling, mass and lump, lower limb, bilateral (principal)
CPT/HCPCS: 76882